=== PATIENT | female | born 1965 | race Caucasian/White ===

== ENCOUNTER 2018-07-03 15:48 | Inpatient (IN) | payer OTHER ==
[2018-07-04] MEDS ORDERED: ACETAMINOPHEN 325 MG TABLET (FP) PO PRN (16:37)
[2018-07-04] MEDS ORDERED: HYDROmorphone HCl 2 MG/ML VIAL IVPUSH PRN (16:37)
--- NOTE | 2018-07-04 16:53 | HP ---
Admitting History and Physical - Admission Chief Complaint: I have an ulcer History of Present Illness: Ms Hurtado is a pleasant 53 year old female who was transferred from [facility] to be seen by her original gastric bypass surgery Dr Khoury for evaluation of ulceration at site of anastamosis. Patient says she had surgery 12 years ago and has been doing well. However recently she presented to [facility] and was found to have an SBO which required emergent surgery for SHAISTA. She was discharged from the hospital, however she was not feeling well. She noted that she was having severe abdominal pain. She says it was mainly epigastric but also she felt it in her LLQ. She presented to [facility] and was found to have colitis and was treated with a full course of cipro and flagyl. She was seen by multiple specialties at [facility] including trauma, orthopedics, rheumatology , pain management, and GI. She underwent EGD there and was found to have a 2.5cm clean based ulceration at the gastrojejunal anastomosis. Case was d/w Dr Khoury who accepted the patient for transfer for possible surgery. Currently she says she is still having abdominal pain as stated above. She denies fevers, chills, lightheadedness, dizziness, chest pain or pressure, shortness of breath , nausea, vomiting, diarrhea, conversation, difficulty or pain on urination, or swelling. She says she might have a yeast infection secondary to recently being on antibiotics. History Source: Patient, Medical Record Limitations to Obtaining History: No Limitations - Past Medical History Cardiovascular: Yes: CAD, HTN, Hyperlipdemia Rheumatology: Yes: Rheumatoid Arthritis - Past Surgical History Past Surgical History: Yes: CABG, Joint Replacement (R knee) Additional Past Surgical History: gastric bypass - Smoking History Smoking history: Former smoker Have you smoked in the past 12 months: No - Alcohol/Substance Use Hx Alcohol Use: No History of Substance Use: reports: None - Social History Usual Living Arrangement: Yes: Alone ADL: Independent History of Recent Travel: No Family Disease History - Family Disease History Family Disease History: Diabetes: Mother, Brother Review of Systems Findings/Remarks: full review of systems obtained, as per HPI and otherwise negative Physical Examination Constitutional: Yes: Well Nourished, No Distress, Calm Eyes: Yes: Conjunctiva Clear, EOM Intact, PERRL HENT: Yes: Atraumatic, Normocephalic Cardiovascular: Yes: Regular Rate and Rhythm. No: Gallop, Murmur, Rub Respiratory: Yes: Regular, CTA Bilaterally. No: Rales, Rhonchi, Wheezes Gastrointestinal: Yes: Normal Bowel Sounds, Soft, Tenderness. No: Distention Extremities: Yes: WNL Edema: No Labs: pending Problem List - Problems (1) Gastric ulcer Assessment/Plan: -Dr Khoury accepted patient in transfer for evaluation for surgery -currently does not appear to be bleeding -place on protonix 40mg bid -continue carafate -clear liquid diet Code(s): K25.9 - GASTRIC ULCER, UNSP ACUTE OR CHRONIC, W/O HEMOR OR PERF (2) CAD (coronary artery disease) Assessment/Plan: -quiescent -no aspirin secondary to bleeding ulcer -continue metoprolol -continue statin -obtain ekg Code(s): I25.10 - ATHSCL HEART DISEASE OF [place] CORONARY ARTERY W/O ANG PCTRS (3) HTN (hypertension) Assessment/Plan: -continue metoprolol and cozaar Code(s): I10 - ESSENTIAL (PRIMARY) HYPERTENSION (4) Rheumatoid arthritis Assessment/Plan: -holding modulators secondary to recent infections and possible surgery -notes recommend gabapentin for pain control -will trial this Code(s): M06.9 - RHEUMATOID ARTHRITIS, UNSPECIFIED (5) Acute abdominal pain syndrome Assessment/Plan: -oxycodone for moderate pain -IV dilaudid for severe pain Code(s): R10.0 - ACUTE ABDOMEN (6) Depression Assessment/Plan: -continue lexapro Code(s): F32.9 - MAJOR DEPRESSIVE DISORDER, SINGLE EPISODE, UNSPECIFIED Assessment/Plan DVT PPx: SCDs, avoid anticoagulants PT consult
--- NOTE | 2018-07-04 17:52 | CONSULT ---
Consult - text type - Consultation Consultation Note: Bariatric Surgery This 53 yo woman transferred from [facility] with UGI bleeding and intractable epigastric pain secondary to an anastomotic ulcer. Pt is 15 years S/P Gastric Bypass and recently has suffered from UGI bleeding secondary to anastomotic ulcer. Gi service at [facility] states medical therapy is no longer an option, so patient is transferred for possible surgical therapy. Pt with history of CABG 2.5 years ago, and 3 weeks ago had surgery for intestinal obstruction. PMH-CAD, GERD, hypercholesterolemia, RA PSHx- CABG, Gastric Bypass, knee replacement P/E- Awake, alert, appears very thin, NAD Abd- non-distended; soft, mild epigastric discomfort on palpation I- Anastomotic Ulcer S/P Gastric Bypass P- GI consult (Dr Gomez contacted) Card Consult Daily Labs
[2018-07-04] MEDS: LACTATED RINGERS SOLUTION 1,000 ML IV SCH (18:38)
[2018-07-04] MEDS: oxyCODONE HCL 5 MG TABLET PO PRN (18:46)
[2018-07-04] MEDS: SUCRALFATE 1 GM/10 ML UNIT DOSE CUPS PO SCH ×2 (18:47→21:27)
[2018-07-04] MEDS: ALPRAZolam 0.25 MG TABLET PO PRN (18:47)
[2018-07-04] MEDS ORDERED: PT OWN MED DRAWER 7, Y5N ONE (18:57)
[2018-07-04 19:31] LABS: BASO % 0.8 % (0-2.0); HEMATOCRIT 34.1 % (32.4-45.2); HEMOGLOBIN 10.9 GM/dL (10.7-15.3); LYMPH % 28.5 % (8-40); MCH 29.9 pg (25.7-33.7); MEAN CELL VOLUME 93.4 fl (80-96); MEAN PLT VOLUME 9.6 fl (7.5-11.1); MONO % 14.6 % (3.8-10.2); NEUT % 55.1 % (42.8-82.8); PLATELET COUNT 324 K/MM3 (134-434); RBC 3.65 M/mm3 (3.60-5.2); RDW 20.4 % (11.6-15.6); WHITE BLOOD COUNT 3.3 K/mm3 (4.0-10.0)
[2018-07-04 19:49] LABS: INR 1.15 (0.83-1.09); PROTHROMBIN TIME (PATIENT) 13.6 SEC (9.7-13.0)
[2018-07-04 19:51] LABS: ACTIVATED PTT 35.9 SECONDS (25.2-36.5)
[2018-07-04] MEDS: PANTOPRAZOLE SODIUM 80 MG in SODIUM CHLORIDE 100 ML IVPB SCH (19:56)
[2018-07-04 19:59] LABS: ALBUMIN 2.9 g/dl (3.4-5.0); ALK PHOS 68 U/L (45-117); ANION GAP 9 MMOL/L (8-16); BILIRUBIN,TOTAL 0.3 mg/dL (0.2-1); BLOOD UREA NITROGEN 11 mg/dL (7-18); CALCIUM 8.4 mg/dL (8.5-10.1); CHLORIDE 103 mmol/L (98-107); CO2 26 mmol/L (21-32); CREATININE 0.7 mg/dL (0.55-1.3); GLUCOSE,RANDOM 126 mg/dL (74-106); MAGNESIUM 2.3 mg/dL (1.8-2.4); PHOSPHOROUS 3.9 mg/dL (2.5-4.9); POTASSIUM 4.2 mmol/L (3.5-5.1); SGOT/AST 15 U/L (15-37); SGPT/ALT 18 U/L (13-61); SODIUM 139 mmol/L (136-145); TOT PROT 6.9 g/dl (6.4-8.2)
[2018-07-04] MEDS: GABAPENTIN 250 MG/5 ML ORAL SOLUTION, 470 ML BOTTLE PO SCH (21:27)
[2018-07-04] MEDS: ATORVASTATIN CA 40 MG TABLET (FP) PO SCH (21:28)
[2018-07-04] MEDS: DOCUSATE SODIUM 100 MG CAPSULE (FP) PO SCH (21:28)
[2018-07-04] MEDS: ZOLPIDEM TARTRATE 5 MG TABLET PO PRN (21:30)
[2018-07-04] MEDS: HYDROmorphone HCl 2 MG/ML VIAL IVPB PRN (21:54)
[2018-07-04] MEDS ORDERED: PANTOPRAZOLE 40 MG TABLET (FP) PO SCH (22:00)
[2018-07-05] MEDS: HYDROmorphone HCl 2 MG/ML VIAL IVPB PRN ×4 (02:56→18:55)
[2018-07-05] MEDS: PANTOPRAZOLE SODIUM 80 MG in SODIUM CHLORIDE 100 ML IVPB SCH ×3 (03:17→20:32)
[2018-07-05] MEDS: LACTATED RINGERS SOLUTION 1,000 ML IV SCH ×2 (05:25→16:24)
[2018-07-05] MEDS: oxyCODONE HCL 5 MG TABLET PO PRN ×4 (05:31→21:56)
[2018-07-05] MEDS: GABAPENTIN 250 MG/5 ML ORAL SOLUTION, 470 ML BOTTLE PO SCH ×3 (05:31→21:55)
[2018-07-05] MEDS: SUCRALFATE 1 GM/10 ML UNIT DOSE CUPS PO SCH ×4 (06:04→21:56)
[2018-07-05 07:53] LABS: BASO % 0.8 % (0-2.0); HEMATOCRIT 29.5 % (32.4-45.2); HEMOGLOBIN 9.3 GM/dL (10.7-15.3); LYMPH % 20.3 % (8-40); MCH 29.3 pg (25.7-33.7); MCHC 31.6 g/dl (32.0-36.0); MEAN PLT VOLUME 9.3 fl (7.5-11.1); NEUT % 62.9 % (42.8-82.8); PLATELET COUNT 260 K/MM3 (134-434); RBC 3.17 M/mm3 (3.60-5.2); RDW 20.2 % (11.6-15.6); WHITE BLOOD COUNT 3.4 K/mm3 (4.0-10.0)
[2018-07-05 08:23] LABS: ALBUMIN 2.5 g/dl (3.4-5.0); ALK PHOS 53 U/L (45-117); ANION GAP 10 MMOL/L (8-16); BILIRUBIN,TOTAL 0.4 mg/dL (0.2-1); BLOOD UREA NITROGEN 8 mg/dL (7-18); CALCIUM 7.9 mg/dL (8.5-10.1); CHLORIDE 104 mmol/L (98-107); CO2 27 mmol/L (21-32); CREATININE 0.6 mg/dL (0.55-1.3); GLUCOSE,RANDOM 77 mg/dL (74-106); PHOSPHOROUS 3.5 mg/dL (2.5-4.9); POTASSIUM 4.2 mmol/L (3.5-5.1); SGOT/AST 12 U/L (15-37); SGPT/ALT 14 U/L (13-61); SODIUM 141 mmol/L (136-145)
[2018-07-05] MEDS ORDERED: PT OWN MED DRAWER 7, Y5N ONE ×3 (09:03→20:56)
[2018-07-05] MEDS: METOPROLOL TARTRATE 25 MG TABLET (FP) PO SCH (09:12)
[2018-07-05] MEDS: ESCITALOPRAM OXALATE 20 MG TABLET (FP) PO SCH (09:12)
[2018-07-05] MEDS: DOCUSATE SODIUM 100 MG CAPSULE (FP) PO SCH ×2 (09:12→21:55)
[2018-07-05] MEDS: FOLIC ACID 1 MG TABLET (FP) PO SCH (09:12)
[2018-07-05] MEDS: CALCITRIOL 0.25 MCG CAPSULE (FP) PO SCH (09:12)
[2018-07-05] MEDS: POLYETHYLENE GLYCOL 3350 119 GM BTL PO SCH (09:16)
[2018-07-05] MEDS ORDERED: LOSARTAN POTASSIUM 25 MG TABLET PO SCH (10:00)
[2018-07-05] MEDS: ALPRAZolam 0.25 MG TABLET PO PRN (11:15)
[2018-07-05] MEDS: ACETAMINOPHEN 650 MG/20.3 ML ORAL SOLUTION (CUPS) PO PRN (13:09)
--- NOTE | 2018-07-05 13:41 | PN ---
Progress Note, Physician Chief Complaint: Ms Hurtado complains of pain in her hands and feet. Denies cp, sob, n/v. - Current Medication List Current Medications: Active Medications Acetaminophen (Tylenol Oral Solution -) 650 mg PO Q4H PRN PRN Reason: FEVER Last Admin: 07/05/18 13:09 Dose: 650 mg Alprazolam (Xanax -) 0.5 mg PO Q8H PRN PRN Reason: ANXIETY Last Admin: 07/05/18 11:15 Dose: 0.5 mg Atorvastatin Calcium (Lipitor -) 40 mg PO HS [facility] Last Admin: 07/04/18 21:28 Dose: 40 mg Calcitriol (Rocaltrol -) 0.25 mcg PO DAILY [facility] Last Admin: 07/05/18 09:12 Dose: 0.25 mcg Docusate Sodium (Colace -) 100 mg PO BID [facility] Last Admin: 07/05/18 09:12 Dose: 100 mg Escitalopram Oxalate (Lexapro -) 20 mg PO DAILY [facility] Last Admin: 07/05/18 09:12 Dose: 20 mg Folic Acid (Folic Acid -) 1 mg PO DAILY [facility] Last Admin: 07/05/18 09:12 Dose: 1 mg Gabapentin (Neurontin Oral Liquid -) 100 mg PO TID [facility] Last Admin: 07/05/18 13:05 Dose: 100 mg Hydromorphone HCl (Dilaudid Vial -) 0.5 mg IVPB Q4H PRN PRN Reason: PAIN LEVEL 7 - 10 Last Admin: 07/05/18 13:04 Dose: 0.5 mg Lactated Ringer's (Lactated Ringers Solution) 1,000 mls @ 75 mls/hr IV ASDIR [facility] Last Admin: 07/05/18 05:25 Dose: 75 mls/hr Pantoprazole Sodium 80 mg/ (Sodium Chloride) 100 mls @ 10 mls/hr IVPB Q10H [facility] Last Admin: 07/05/18 03:17 Dose: 10 mls/hr Losartan Potassium (Cozaar -) 25 mg PO DAILY [facility] Last Admin: 07/05/18 09:12 Dose: 25 mg Metoprolol Tartrate (Lopressor -) 25 mg PO DAILY [facility] Last Admin: 07/05/18 09:12 Dose: 25 mg Oxycodone HCl (Roxicodone -) 10 mg PO Q4H PRN PRN Reason: PAIN LEVEL 4 - 6 Polyethylene Glycol (Miralax (For Daily Use) -) 17 gm PO DAILY [facility] Last Admin: 07/05/18 09:16 Dose: 17 gm Sucralfate (Carafate Oral Suspension -) 1 gm PO ACHS [facility] Last Admin: 07/05/18 11:36 Dose: 1 gm Zolpidem Tartrate (Ambien -) 10 mg PO HS PRN PRN Reason: INSOMNIA Last Admin: 07/04/18 21:30 Dose: 10 mg - Objective Vital Signs: Vital Signs Temperature 36.8 C 07/05/18 06:00 Pulse Rate 77 07/05/18 06:00 Respiratory Rate 18 07/05/18 06:00 Blood Pressure 113/72 07/05/18 06:00 O2 Sat by Pulse Oximetry (%) 98 07/05/18 09:00 Constitutional: Yes: Well Nourished, No Distress, Calm Cardiovascular: Yes: Regular Rate and Rhythm. No: Gallop, Murmur, Rub Respiratory: Yes: Regular, CTA Bilaterally. No: Rales, Rhonchi, Wheezes Gastrointestinal: Yes: Normal Bowel Sounds, Soft. No: Distention, Tenderness Extremities: Yes: WNL Edema: No Labs: CBC, BMP 07/05/18 06:30 07/05/18 06:30 INR, PTT INR 1.15 (0.83-1.09) H 07/04/18 18:34 Problem List - Problems (1) Gastric ulcer Code(s): K25.9 - GASTRIC ULCER, UNSP ACUTE OR CHRONIC, W/O HEMOR OR PERF (2) CAD (coronary artery disease) Code(s): I25.10 - ATHSCL HEART DISEASE OF [place] CORONARY ARTERY W/O ANG PCTRS (3) HTN (hypertension) Code(s): I10 - ESSENTIAL (PRIMARY) HYPERTENSION (4) Rheumatoid arthritis Code(s): M06.9 - RHEUMATOID ARTHRITIS, UNSPECIFIED (5) Acute abdominal pain syndrome Code(s): R10.0 - ACUTE ABDOMEN (6) Depression Code(s): F32.9 - MAJOR DEPRESSIVE DISORDER, SINGLE EPISODE, UNSPECIFIED Assessment/Plan (1) Gastric ulcer Assessment/Plan: -case d/w Dr Khoury -GI consulted, possible EGD on Saturday -evaluation for surgical intervention after this -on protonix gtt -clear liquid diet Code(s): K25.9 - GASTRIC ULCER, UNSP ACUTE OR CHRONIC, W/O HEMOR OR PERF (2) CAD (coronary artery disease) Assessment/Plan: -quiescent -no aspirin secondary to bleeding ulcer -continue metoprolol -continue statin -cardiology consult for clearance Code(s): I25.10 - ATHSCL HEART DISEASE OF [place] CORONARY ARTERY W/O ANG PCTRS (3) HTN (hypertension) Assessment/Plan: -continue metoprolol and cozaar Code(s): I10 - ESSENTIAL (PRIMARY) HYPERTENSION (4) Rheumatoid arthritis Assessment/Plan: -holding modulators secondary to recent infections and possible surgery -continue gabapentin -rheumatology consult per patient request Code(s): M06.9 - RHEUMATOID ARTHRITIS, UNSPECIFIED (5) Acute abdominal pain syndrome Assessment/Plan: -patient asking for more pain medications -will change oxycodone to 10mg q4h prn as that is what she was on at [facility] -however pain management recommended dilaudid 0.5mg IV q4h prn instead of q3h, placed on that -patient is asking for it to be changed to q3h prn and for it to be IVP, not piggybacked -explained to patient at this time will continue dilaudid at current order -pain management consult per patient request Code(s): R10.0 - ACUTE ABDOMEN (6) Depression Assessment/Plan: -continue lexapro Code(s): F32.9 - MAJOR DEPRESSIVE DISORDER, SINGLE EPISODE, UNSPECIFIED
[2018-07-05 13:55] LABS: URINE APPEARANCE CLEAR; URINE BILIRUBIN NEGATIVE (<2.0 mg/dL); URINE COLOR STRAW; URINE GLUCOSE (UA) NEGATIVE (NEGATIVE); URINE KETONE NEGATIVE (NEGATIVE); URINE LEUK ESTERASE TRACE (NEGATIVE); URINE NITRITE NEGATIVE (NEGATIVE); URINE PROTEIN NEGATIVE (NEGATIVE); URINE UROBILINOGEN NEGATIVE mg/dL (0.2-1.0)
--- NOTE | 2018-07-05 17:40 | PN ---
Progress Note (short form) - Note Progress Note: Bariatric Surgery Pt unchanged from previously Tolerating PO liquids No N/V No melena noted Last BP-77/49 (was WNL prior to that reading-will re-check) Pt ambulating with no difficulties P/E- Abd- non-distended; soft, mild epigastric tenderness on palpation No rebound tenderness No guarding WBC-3.4 H/H-9.3/29.5 (slight decrease from 10.9/34.1) P- Cont PO liquids Cardiology to see Possible endoscopy with GI on Saturday
--- NOTE | 2018-07-05 19:06 | CONSULT ---
Consult - text type - Consultation Consultation Note: Cardiology (Dr. Bailey for Dr. Stuart) Patient seen and examined Reason for consult: Preoperative cardiac evaluation 53yo female with HTN Transferred with UGI bleeding and intractable epigastric pain secondary to an anastomotic ulcer. Prior Gastric Bypass 15 years ago and recently has suffered from UGI bleeding ( Hgb 10.9) secondary to anastomotic ulcer. GI service at [facility] states medical therapy is no longer an option, so patient is transferred for possible surgical therapy Known CAD s/p 3v CAD in 2014 Follow[address] closely by Dr. Duke Mercer Recently underwent CV testing including stress testing 6 months ago and by her report was normal Now admitted with GI bleeding and will need EGD on Saturday Her functional capacity is >4 mets without cardiovascular symptoms She denies any chest pain or dyspnea She does have prior coronary stents (but done after her CABG revascularization) and with "7 MIs" all predating her CABG Allergies/Meds/Soc Hx and Fam Hx reviewed PE:BP 70-100/80s P 53 (on beta shyanne) No distress, comfortable JVP normal Regular rate, no murmurs Sternotomy scar visible Lungs are clear bilatearlly Abd is tender in epigastric area No LE edema Labs: Hgb 10.9, BUN/Cr 11/0.7 EC07/05/2018 at 09:52 NSR at 73/min with T-wave inversions in leads V4-V6 and II, II and AvF (unknown baseline) IMP: -Given her cardiac history and abnormal ECG (unknown baseline) I recommend reaching out to her primary music supervisor early Saturday AM (Dr. Duke Mercer ) to obtain report of her recent stress test and a copy of her recent ECG to determine if the current changes are baseline. Her BP is low, likely due to liquid diet, would d/c losartan in this setting Will follow along
--- NOTE | 2018-07-05 19:25 | CONSULT ---
Consult Consult Specialty:: Rheumatology - History of Present Illness History of Present Illness: 53 year old female with PMH of HTN, Hyperlipidemia, coronary artery disease and s/p CABG in 2016, shelter Hx of rheumatoid arthritis, Hx of gastric obstruction 3 weeks ago treated with endoscopic surgery, s/p gastric bypass, admitted with an anastomotic ulcer not responding to conservative treatment. HPI. The patient was admitted 3 weeks ago to [facility] with flu complicated with intestinal obstruction. She had endoscopic surgery, however she continued having severe abdominal pain, diagnosed with anastomotic ulcer not responding to medical treatment, transferred to [facility] for probable surgical management. RA. 30 year history of rheumatoid arthritis, She has been treated in the past with Humira, Enbrel, Remicade, Orencia and at the present time she is on Methotrexate 25 mg /w IM (apparently started only 4 years ago) and Xeljanz 11 mg (started 1 year ago), apparently with good response and discontinued 3 weeks ago due to the GI problems. The patient had in the past right total knee replacement, fusion of both wrists , arthroplasty (Ordonez) of MCPs in the right hand, cervical and lumbar spine fusion and apparently rheumatoid nodules removal from both elbows. At the present time the patient has severe pain in most peripheral joints and significant limitation of activities of daily living, she can hardly stand-up from bed. - History Source History Provided By: Patient, Medical Record - Past Medical History Cardio/Vascular: Yes: CAD, HTN, Hyperlipdemia ...: No Rheumatology: Yes: Rheumatoid Arthritis - Past Surgical History Past Surgical History: Yes: CABG, Joint Replacement (R knee) - Alcohol/Substance Use Hx Alcohol Use: No History of Substance Use: reports: None - Smoking History Smoking history: Former smoker Have you smoked in the past 12 months: No If you are a former smoker, when did you quit?: 10 years ago - Social History ADL: Independent History of Recent Travel: No Home Medications - Allergies Allergies/Adverse Reactions: Allergies Allergy/AdvReac Type Severity Reaction Status Date / Time No Known Allergies Allergy Verified 07/04/18 17:57 Family Disease History - Family Disease History Family Disease History: Diabetes: Mother, Brother Review of Systems - Review of Systems Constitutional: reports: Malaise Eyes: reports: No Symptoms HENT: reports: No Symptoms Neck: reports: No Symptoms Cardiovascular: reports: No Symptoms Respiratory: reports: No Symptoms Gastrointestinal: reports: Other (See HPI) Musculoskeletal: reports: Other (See HPI) Integumentary: reports: No Symptoms Neurological: reports: No Symptoms Physical Exam Vital Signs: Vital Signs Temperature 98.4 F 07/05/18 17:36 Pulse Rate 53 L 07/05/18 17:36 Respiratory Rate 18 07/05/18 17:36 Blood Pressure 101/59 L 07/05/18 17:36 O2 Sat by Pulse Oximetry (%) 98 07/05/18 09:00 Constitutional: Yes: Severe Distress Eyes: Yes: WNL HENT: Yes: WNL Neck: Yes: WNL Cardiovascular: Yes: WNL Respiratory: Yes: WNL Gastrointestinal: Yes: Soft, Tenderness Musculoskeletal: Yes: Other (Swelloing of both wlbows, both wrists, MCPs in the left hand, PIPs in both hands. Mild tenderness in the left ankle.) Labs: CBC, BMP 07/05/18 06:30 07/05/18 06:30 Laboratory Tests 07/05/18 07/05/18 06:30 12:50 Calcium 7.9 L Phosphorus 3.5 Magnesium 2.0 Total Bilirubin 0.4 AST 12 L ALT 14 Alkaline Phosphatase 53 Total Protein 6.0 L Albumin 2.5 L Urine Color Straw Urine Appearance Clear Urine pH 8.0 Ur Specific [place] 1.005 L Urine Protein Negative Urine Glucose (UA) Negative Urine Ketones Negative Urine Blood Negative Urine Nitrite Negative Urine Bilirubin Negative Urine Urobilinogen Negative Ur Leukocyte Esterase Trace Problem List - Problems (1) Rheumatoid arthritis Assessment/Plan: Rheumatoid arthritis, disease very active. The patient will probably have an endoscopy on Saturday and surgery is been contemplated. ]I suggest to continue Methotrexate 25 mg IM, start Prednisone 10 mg/d for joint pain management and continue to hold Xeljanz until the GI problem is resolved. I am waiting to discuss the case with Dr. Khoury to start the medications. Code(s): M06.9 - RHEUMATOID ARTHRITIS, UNSPECIFIED
[2018-07-05] MEDS: ZOLPIDEM TARTRATE 5 MG TABLET PO PRN (21:55)
[2018-07-05] MEDS: ATORVASTATIN CA 40 MG TABLET (FP) PO SCH (21:56)
[2018-07-06] MEDS: HYDROmorphone HCl 2 MG/ML VIAL IVPB PRN ×4 (01:17→21:43)
[2018-07-06] MEDS ORDERED: PT OWN MED DRAWER 7, Y5N ONE ×3 (01:27→22:22)
[2018-07-06] MEDS: PANTOPRAZOLE SODIUM 80 MG in SODIUM CHLORIDE 100 ML IVPB SCH ×2 (03:54→09:59)
[2018-07-06] MEDS: oxyCODONE HCL 5 MG TABLET PO PRN ×3 (06:02→18:52)
[2018-07-06] MEDS: GABAPENTIN 250 MG/5 ML ORAL SOLUTION, 470 ML BOTTLE PO SCH ×3 (06:05→21:42)
[2018-07-06] MEDS: SUCRALFATE 1 GM/10 ML UNIT DOSE CUPS PO SCH ×4 (06:05→21:46)
[2018-07-06 07:46] LABS: BASO % 0.6 % (0-2.0); EOS % 1.5 % (0-4.5); HEMATOCRIT 29.2 % (32.4-45.2); HEMOGLOBIN 9.3 GM/dL (10.7-15.3); LYMPH % 29.1 % (8-40); MCH 29.6 pg (25.7-33.7); MCHC 31.8 g/dl (32.0-36.0); MEAN PLT VOLUME 8.7 fl (7.5-11.1); MONO % 17.5 % (3.8-10.2); NEUT % 51.3 % (42.8-82.8); PLATELET COUNT 232 K/MM3 (134-434); RBC 3.14 M/mm3 (3.60-5.2); WHITE BLOOD COUNT 2.4 K/mm3 (4.0-10.0)
[2018-07-06 08:31] LABS: ANION GAP 4 MMOL/L (8-16); BLOOD UREA NITROGEN 5 mg/dL (7-18); CALCIUM 8.4 mg/dL (8.5-10.1); CHLORIDE 105 mmol/L (98-107); CO2 30 mmol/L (21-32); CREATININE 0.5 mg/dL (0.55-1.3); GLUCOSE,RANDOM 77 mg/dL (74-106); PHOSPHOROUS 4.2 mg/dL (2.5-4.9); POTASSIUM 3.9 mmol/L (3.5-5.1); SODIUM 138 mmol/L (136-145)
[2018-07-06] MEDS: ALPRAZolam 0.25 MG TABLET PO PRN (08:52)
[2018-07-06] MEDS: POLYETHYLENE GLYCOL 3350 119 GM BTL PO SCH (09:59)
[2018-07-06] MEDS: ESCITALOPRAM OXALATE 20 MG TABLET (FP) PO SCH (09:59)
[2018-07-06] MEDS: DOCUSATE SODIUM 100 MG CAPSULE (FP) PO SCH ×2 (09:59→21:41)
[2018-07-06] MEDS: METOPROLOL TARTRATE 25 MG TABLET (FP) PO SCH (09:59)
[2018-07-06] MEDS: FOLIC ACID 1 MG TABLET (FP) PO SCH (09:59)
[2018-07-06] MEDS: CALCITRIOL 0.25 MCG CAPSULE (FP) PO SCH (09:59)
--- NOTE | 2018-07-06 12:18 | PN ---
Progress Note, Physician Chief Complaint: Ms Hurtado complains of rheumatoid arthritis pain. No cp, sob, n/v. - Current Medication List Current Medications: Active Medications Acetaminophen (Tylenol Oral Solution -) 650 mg PO Q4H PRN PRN Reason: FEVER Last Admin: 07/05/18 13:09 Dose: 650 mg Alprazolam (Xanax -) 0.5 mg PO Q8H PRN PRN Reason: ANXIETY Last Admin: 07/06/18 08:52 Dose: 0.5 mg Atorvastatin Calcium (Lipitor -) 40 mg PO HS [facility] Last Admin: 07/05/18 21:56 Dose: 40 mg Calcitriol (Rocaltrol -) 0.25 mcg PO DAILY [facility] Last Admin: 07/06/18 09:59 Dose: 0.25 mcg Docusate Sodium (Colace -) 100 mg PO BID [facility] Last Admin: 07/06/18 09:59 Dose: 100 mg Escitalopram Oxalate (Lexapro -) 20 mg PO DAILY [facility] Last Admin: 07/06/18 09:59 Dose: 20 mg Folic Acid (Folic Acid -) 1 mg PO DAILY [facility] Last Admin: 07/06/18 09:59 Dose: 1 mg Gabapentin (Neurontin Oral Liquid -) 100 mg PO TID [facility] Last Admin: 07/06/18 06:05 Dose: 100 mg Hydromorphone HCl (Dilaudid Vial -) 0.5 mg IVPB Q4H PRN PRN Reason: PAIN LEVEL 7 - 10 Last Admin: 07/06/18 08:51 Dose: 0.5 mg Lactated Ringer's (Lactated Ringers Solution) 1,000 mls @ 75 mls/hr IV ASDIR [facility] Last Admin: 07/05/18 16:24 Dose: 75 mls/hr Pantoprazole Sodium 80 mg/ (Sodium Chloride) 100 mls @ 10 mls/hr IVPB Q10H [facility] Last Admin: 07/06/18 09:59 Dose: 10 mls/hr Metoprolol Tartrate (Lopressor -) 25 mg PO DAILY [facility] Last Admin: 07/06/18 09:59 Dose: Not Given Oxycodone HCl (Roxicodone -) 10 mg PO Q4H PRN PRN Reason: PAIN LEVEL 4 - 6 Last Admin: 07/06/18 12:01 Dose: 10 mg Polyethylene Glycol (Miralax (For Daily Use) -) 17 gm PO DAILY [facility] Last Admin: 07/06/18 09:59 Dose: 17 gm Sucralfate (Carafate Oral Suspension -) 1 gm PO ACHS [facility] Last Admin: 07/06/18 12:01 Dose: 1 gm Zolpidem Tartrate (Ambien -) 10 mg PO HS PRN PRN Reason: INSOMNIA Last Admin: 07/05/18 21:55 Dose: 10 mg - Objective Vital Signs: Vital Signs Temperature 37.2 C 07/06/18 09:58 Pulse Rate 78 07/06/18 09:58 Respiratory Rate 18 07/06/18 09:58 Blood Pressure 99/61 07/06/18 09:58 O2 Sat by Pulse Oximetry (%) 96 07/06/18 09:00 Constitutional: Yes: Well Nourished, No Distress, Calm Cardiovascular: Yes: Regular Rate and Rhythm. No: Gallop, Murmur, Rub Respiratory: Yes: Regular, CTA Bilaterally. No: Rales, Rhonchi, Wheezes Gastrointestinal: Yes: Normal Bowel Sounds, Soft. No: Distention, Tenderness Extremities: Yes: WNL Edema: No Labs: CBC, BMP 07/06/18 06:30 07/06/18 06:30 INR, PTT INR 1.15 (0.83-1.09) H 07/04/18 18:34 Problem List - Problems (1) Gastric ulcer Code(s): K25.9 - GASTRIC ULCER, UNSP ACUTE OR CHRONIC, W/O HEMOR OR PERF (2) CAD (coronary artery disease) Code(s): I25.10 - ATHSCL HEART DISEASE OF [place] CORONARY ARTERY W/O ANG PCTRS (3) HTN (hypertension) Code(s): I10 - ESSENTIAL (PRIMARY) HYPERTENSION (4) Rheumatoid arthritis Code(s): M06.9 - RHEUMATOID ARTHRITIS, UNSPECIFIED (5) Acute abdominal pain syndrome Code(s): R10.0 - ACUTE ABDOMEN (6) Depression Code(s): F32.9 - MAJOR DEPRESSIVE DISORDER, SINGLE EPISODE, UNSPECIFIED Assessment/Plan (1) Gastric ulcer Assessment/Plan: -Dr Khoury and Dr Gomez following -planning for EGD tomorrow -will make npo tonight -on protonix gtt -clear liquid diet currently Code(s): K25.9 - GASTRIC ULCER, UNSP ACUTE OR CHRONIC, W/O HEMOR OR PERF (2) CAD (coronary artery disease) Assessment/Plan: -quiescent -no aspirin secondary to bleeding ulcer -continue metoprolol -continue statin -cardiology note reviewed, obtain outpatient records Code(s): I25.10 - ATHSCL HEART DISEASE OF [place] CORONARY ARTERY W/O ANG PCTRS (3) HTN (hypertension) Assessment/Plan: -continue metoprolol -cozaar discontinued secondary to hypotension Code(s): I10 - ESSENTIAL (PRIMARY) HYPERTENSION (4) Rheumatoid arthritis Assessment/Plan: -continue gabapentin -appreciate rheumatology consult -start methotrexate and prednisone if approved by Dr Khoury Code(s): M06.9 - RHEUMATOID ARTHRITIS, UNSPECIFIED (5) Acute abdominal pain syndrome Assessment/Plan: -pain management consult placed -continue current regimen Code(s): R10.0 - ACUTE ABDOMEN (6) Depression Assessment/Plan: -continue lexapro Code(s): F32.9 - MAJOR DEPRESSIVE DISORDER, SINGLE EPISODE, UNSPECIFIED
--- NOTE | 2018-07-06 12:49 | EKG ---
Test Reason : Blood Pressure : / mmHG Vent. Rate : 073 BPM Atrial Rate : 073 BPM P-R Int : 098 ms QRS Dur : 092 ms QT Int : 410 ms P-R-T Axes : 029 035 -41 degrees QTc Int : 451 ms SINUS RHYTHM WITH SHORT [place] INFERIOR INFARCT , AGE UNDETERMINED ABNORMAL ECG NO PREVIOUS ECGS AVAILABLE Confirmed by Samuel Chirinos ([id number]) on 07/06/2018 12:48:59 PM Referred By: Bobby MATAMOROS Confirmed By:Samuel Chirinos
--- NOTE | 2018-07-06 16:29 | PN ---
Progress Note (short form) - Note Progress Note: Bariatric Surgery: Cardiology, Rheumatology notes appreciated Pt unchanged VSS Pt states felt epigastric pain after eating chicken soup today No N/V No BM today P/E-Abd- soft, mild epigastric pain on palpation WBC-2.4 H/H-9.3/29.2(stable) P- NPO tonight Would not start prednisone or Methotrexate seconday to risk of bleeding and/ or perforation with ulcer
[2018-07-06] MEDS: LACTATED RINGERS SOLUTION 1,000 ML IV SCH (17:22)
[2018-07-06] MEDS: ZOLPIDEM TARTRATE 5 MG TABLET PO PRN (21:41)
[2018-07-06] MEDS: ATORVASTATIN CA 40 MG TABLET (FP) PO SCH (21:41)
[2018-07-07] MEDS: oxyCODONE HCL 5 MG TABLET PO PRN ×3 (00:26→10:42)
[2018-07-07] MEDS: HYDROmorphone HCl 2 MG/ML VIAL IVPB PRN ×3 (03:31→21:19)
[2018-07-07] MEDS: PANTOPRAZOLE SODIUM 80 MG in SODIUM CHLORIDE 100 ML IVPB SCH ×3 (06:28→15:29)
[2018-07-07] MEDS: GABAPENTIN 250 MG/5 ML ORAL SOLUTION, 470 ML BOTTLE PO SCH ×3 (06:29→21:08)
[2018-07-07] MEDS: SUCRALFATE 1 GM/10 ML UNIT DOSE CUPS PO SCH ×4 (06:37→21:08)
[2018-07-07 07:46] LABS: BASO % 0.8 % (0-2.0); EOS % 1.1 % (0-4.5); HEMATOCRIT 31.1 % (32.4-45.2); HEMOGLOBIN 9.6 GM/dL (10.7-15.3); LYMPH % 26.4 % (8-40); MCH 28.7 pg (25.7-33.7); MCHC 30.9 g/dl (32.0-36.0); MEAN PLT VOLUME 8.8 fl (7.5-11.1); MONO % 22.7 % (3.8-10.2); PLATELET COUNT 245 K/MM3 (134-434); RBC 3.35 M/mm3 (3.60-5.2); RDW 19.7 % (11.6-15.6); WHITE BLOOD COUNT 2.7 K/mm3 (4.0-10.0)
[2018-07-07 09:16] LABS: ANION GAP 8 MMOL/L (8-16); BLOOD UREA NITROGEN 4 mg/dL (7-18); CALCIUM 8.6 mg/dL (8.5-10.1); CHLORIDE 104 mmol/L (98-107); CO2 29 mmol/L (21-32); CREATININE 0.5 mg/dL (0.55-1.3); GLUCOSE,RANDOM 70 mg/dL (74-106); MAGNESIUM 2.1 mg/dL (1.8-2.4); PHOSPHOROUS 4.9 mg/dL (2.5-4.9); POTASSIUM 4.1 mmol/L (3.5-5.1); SODIUM 141 mmol/L (136-145)
[2018-07-07] MEDS: POLYETHYLENE GLYCOL 3350 119 GM BTL PO SCH (09:25)
[2018-07-07] MEDS: DOCUSATE SODIUM 100 MG CAPSULE (FP) PO SCH ×2 (09:25→21:08)
[2018-07-07] MEDS: ESCITALOPRAM OXALATE 20 MG TABLET (FP) PO SCH ×2 (09:25→15:23)
[2018-07-07] MEDS: CALCITRIOL 0.25 MCG CAPSULE (FP) PO SCH ×2 (09:25→15:23)
[2018-07-07] MEDS: FOLIC ACID 1 MG TABLET (FP) PO SCH ×2 (09:25→15:23)
[2018-07-07] MEDS: METOPROLOL TARTRATE 25 MG TABLET (FP) PO SCH (09:30)
--- NOTE | 2018-07-07 09:32 | CON.GI ---
Consult Consult Specialty:: GI Referred by:: Anup Khoury Reason for Consultation:: Abdominal pain, h/o anastamotic ulcer - History of Present Illness Chief Complaint: Abdominal pain History of Present Illness: 53F, recent hospital @ [facility] and underwent laparoscopy secondary to SBO. Was sent home, noted rectal bleeding / melena, brought to [facility]. Prolonged hospitalization there where marginal ulcer noted. Patient described being treated with nexium and carafate. Transferred to [facility] for possible revision of stephen-en -y gastric bypass. Asked to evaluate ulcer. She complains of left upper abdominal pain and describes it as constant in nature. No vomiting. No diarrhea or rectal bleeding noted. No vomiting. She states that her test clerk is Dr. Welsh and last underwent colonoscopy by her three years ago. There is no family history of colorecctal cancer or other GI malignancy. - History Source History Provided By: Patient, Medical Record - Past Medical History Cardio/Vascular: Yes: CAD, HTN, Hyperlipdemia ...: No Rheumatology: Yes: Rheumatoid Arthritis - Past Surgical History Past Surgical History: Yes: Bariatric Surgery (Gastric bypass: Stephen-en-y), CABG , Hysterectomy (RONEL ), Joint Replacement (R knee), Oopherectomy Additional Surgical History: spinal surgery - Alcohol/Substance Use Hx Alcohol Use: No History of Substance Use: reports: None - Smoking History Smoking history: Former smoker Have you smoked in the past 12 months: No If you are a former smoker, when did you quit?: 10 years ago - Social History Usual Living Arrangement: With Spouse ADL: Independent 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 Place of : [facility] History of Recent Travel: No Home Medications - Allergies Allergies/Adverse Reactions: Allergies Allergy/AdvReac Type Severity Reaction Status Date / Time No Known Allergies Allergy Verified 07/04/18 17:57 Family Disease History - Family Disease History Family Disease History: Diabetes: Mother (: 81: CAD), Brother (4, healthy), Other: Father (: unclear cause), Brother, Sister (1, healthy), Son (2, healthy), Daughter (2, healthy) Other Family History: No family history of colorectal cancer or other GI malignancy Review of Systems - Review of Systems Constitutional: denies: Fever, Unintentional Wgt. Loss Gastrointestinal: reports: Abdominal Pain, Diarrhea, Melena. denies: Constipation, Rectal Bleeding, Vomiting, Vomiting Blood Physical Exam-GI Vital Signs: Vital Signs Temperature 99.4 F 07/07/18 06:00 Pulse Rate 79 07/07/18 06:00 Respiratory Rate 20 07/07/18 06:00 Blood Pressure 112/69 07/07/18 06:00 O2 Sat by Pulse Oximetry (%) 96 07/06/18 09:00 Constitutional: Yes: Calm Eyes: No: Sclera Icterus Cardiovascular: Yes: Regular Rate and Rhythm. No: Murmur Respiratory: Yes: CTA Bilaterally Gastrointestinal Inspection: No: Distention ...Auscultate: Yes: Normoactive Bowel Sounds ...Palpate: Yes: Tenderness (Mild TTP upper abdomen / LUQ) ...Percussion: No: Tympanitic Edema: No (No LE edema) Neurological: Yes: Alert Labs: CBC, BMP 07/07/18 06:30 07/07/18 06:30 INR, PTT INR 1.15 (0.83-1.09) H 07/04/18 18:34 Hepatic Panel Total Bilirubin 0.4 mg/dL (0.2-1) 07/05/18 06:30 AST 12 U/L (15-37) L 07/05/18 06:30 ALT 14 U/L (13-61) 07/05/18 06:30 Alkaline Phosphatase 53 U/L (45-117) 07/05/18 06:30 Albumin 2.5 g/dl (3.4-5.0) L 07/05/18 06:30 Problem List - Problems (1) Gastric ulcer Assessment/Plan: Anastamostic ulcer For reevaluation prior to surgery Discussed upper endoscopy: Discussed potential risks of the procedure like but not limited to bleeding, perforation requiring surgery to repair, infection, sedation medication effects all of which could be potentially life threatening. She has agreed to the procedure Code(s): K25.9 - GASTRIC ULCER, UNSP ACUTE OR CHRONIC, W/O HEMOR OR PERF
[2018-07-07] MEDS: LACTATED RINGERS SOLUTION 1,000 ML IV SCH ×2 (10:46→17:28)
--- NOTE | 2018-07-07 11:54 | PN ---
Progress Note (short form) - Note Progress Note: Bariatric Surgery: Pt unchanged; no further bleeding No N/V GI note appreciated Placed call to Dr Moe (office will fax recent EKG and Stress test) P- Upper endoscopy today Awaiting results of Cardiology testing
--- NOTE | 2018-07-07 13:07 | PN ---
Progress Note, Physician Chief Complaint: Ms Hurtado complains of pain in her hands. Denies cp, sob, n/v. - Current Medication List Current Medications: Active Medications Acetaminophen (Tylenol Oral Solution -) 650 mg PO Q4H PRN PRN Reason: FEVER Last Admin: 07/05/18 13:09 Dose: 650 mg Alprazolam (Xanax -) 0.5 mg PO Q8H PRN PRN Reason: ANXIETY Last Admin: 07/06/18 08:52 Dose: 0.5 mg Atorvastatin Calcium (Lipitor -) 40 mg PO HS [facility] Last Admin: 07/06/18 21:41 Dose: 40 mg Calcitriol (Rocaltrol -) 0.25 mcg PO DAILY [facility] Last Admin: 07/07/18 09:25 Dose: Not Given Docusate Sodium (Colace -) 100 mg PO BID [facility] Last Admin: 07/07/18 09:25 Dose: Not Given Escitalopram Oxalate (Lexapro -) 20 mg PO DAILY [facility] Last Admin: 07/07/18 09:25 Dose: Not Given Folic Acid (Folic Acid -) 1 mg PO DAILY [facility] Last Admin: 07/07/18 09:25 Dose: Not Given Gabapentin (Neurontin Oral Liquid -) 100 mg PO TID [facility] Last Admin: 07/07/18 06:29 Dose: 100 mg Hydromorphone HCl (Dilaudid Vial -) 0.5 mg IVPB Q4H PRN PRN Reason: PAIN LEVEL 7 - 10 Last Admin: 07/07/18 12:14 Dose: 0.5 mg Lactated Ringer's (Lactated Ringers Solution) 1,000 mls @ 75 mls/hr IV ASDIR [facility] Last Admin: 07/07/18 10:46 Dose: 75 mls/hr Pantoprazole Sodium 80 mg/ (Sodium Chloride) 100 mls @ 10 mls/hr IVPB Q10H [facility] Last Admin: 07/07/18 11:13 Dose: 10 mls/hr Metoprolol Tartrate (Lopressor -) 25 mg PO DAILY [facility] Last Admin: 07/07/18 09:30 Dose: 25 mg Oxycodone HCl (Roxicodone -) 10 mg PO Q4H PRN PRN Reason: PAIN LEVEL 4 - 6 Last Admin: 07/07/18 10:42 Dose: 10 mg Polyethylene Glycol (Miralax (For Daily Use) -) 17 gm PO DAILY [facility] Last Admin: 07/07/18 09:25 Dose: Not Given Sucralfate (Carafate Oral Suspension -) 1 gm PO ACHS [facility] Last Admin: 07/07/18 10:42 Dose: 1 gm Zolpidem Tartrate (Ambien -) 10 mg PO HS PRN PRN Reason: INSOMNIA Last Admin: 07/06/18 21:41 Dose: 10 mg - Objective Vital Signs: Vital Signs Temperature 36.6 C 07/07/18 10:00 Pulse Rate 84 07/07/18 10:00 Respiratory Rate 20 07/07/18 10:00 Blood Pressure 135/78 07/07/18 10:00 O2 Sat by Pulse Oximetry (%) 97 07/07/18 09:00 Constitutional: Yes: Well Nourished, No Distress, Calm Cardiovascular: Yes: Regular Rate and Rhythm. No: Gallop, Murmur, Rub Respiratory: Yes: Regular, CTA Bilaterally. No: Rales, Rhonchi, Wheezes Gastrointestinal: Yes: Normal Bowel Sounds, Soft. No: Distention, Tenderness Extremities: Yes: WNL Edema: No Labs: CBC, BMP 07/07/18 06:30 07/07/18 06:30 INR, PTT INR 1.15 (0.83-1.09) H 07/04/18 18:34 Problem List - Problems (1) Gastric ulcer Code(s): K25.9 - GASTRIC ULCER, UNSP ACUTE OR CHRONIC, W/O HEMOR OR PERF (2) CAD (coronary artery disease) Code(s): I25.10 - ATHSCL HEART DISEASE OF [place] CORONARY ARTERY W/O ANG PCTRS (3) HTN (hypertension) Code(s): I10 - ESSENTIAL (PRIMARY) HYPERTENSION (4) Rheumatoid arthritis Code(s): M06.9 - RHEUMATOID ARTHRITIS, UNSPECIFIED (5) Acute abdominal pain syndrome Code(s): R10.0 - ACUTE ABDOMEN (6) Depression Code(s): F32.9 - MAJOR DEPRESSIVE DISORDER, SINGLE EPISODE, UNSPECIFIED Assessment/Plan (1) Gastric ulcer Assessment/Plan: -Dr Khoury and Dr Gomez following -planning for EGD today -on protonix gtt -npo for EGD Code(s): K25.9 - GASTRIC ULCER, UNSP ACUTE OR CHRONIC, W/O HEMOR OR PERF (2) CAD (coronary artery disease) Assessment/Plan: -quiescent -no aspirin secondary to bleeding ulcer -continue metoprolol -continue statin -case d/w cardiology, will document clearance Code(s): I25.10 - ATHSCL HEART DISEASE OF [place] CORONARY ARTERY W/O ANG PCTRS (3) HTN (hypertension) Assessment/Plan: -continue metoprolol -cozaar discontinued secondary to hypotension Code(s): I10 - ESSENTIAL (PRIMARY) HYPERTENSION (4) Rheumatoid arthritis Assessment/Plan: -continue gabapentin -appreciate rheumatology consult -hold on methotrexate and prednisone per Dr Khoury's recommendations Code(s): M06.9 - RHEUMATOID ARTHRITIS, UNSPECIFIED (5) Acute abdominal pain syndrome Assessment/Plan: -pain management consult placed -continue current regimen Code(s): R10.0 - ACUTE ABDOMEN (6) Depression Assessment/Plan: -continue lexapro Code(s): F32.9 - MAJOR DEPRESSIVE DISORDER, SINGLE EPISODE, UNSPECIFIED
--- NOTE | 2018-07-07 14:36 | PN ---
Progress Note (short form) - Note Progress Note: procedure cancelled by anesthesia today. Awaiting formal cardiology clearance. Plan for EGD tomorrow Problem List - Problems (1) Gastric ulcer Code(s): K25.9 - GASTRIC ULCER, UNSP ACUTE OR CHRONIC, W/O HEMOR OR PERF
--- NOTE | 2018-07-07 14:58 | PN ---
Progress Note (short form) - Note Progress Note: s: no chest pain, palps, dizzy, lightheadedness, edema Current Medications Acetaminophen (Tylenol Oral Solution -) 650 mg PO Q4H PRN PRN Reason: FEVER Last Admin: 07/05/18 13:09 Dose: 650 mg Alprazolam (Xanax -) 0.5 mg PO Q8H PRN PRN Reason: ANXIETY Last Admin: 07/06/18 08:52 Dose: 0.5 mg Atorvastatin Calcium (Lipitor -) 40 mg PO HS [facility] Last Admin: 07/06/18 21:41 Dose: 40 mg Calcitriol (Rocaltrol -) 0.25 mcg PO DAILY [facility] Last Admin: 07/07/18 09:25 Dose: Not Given Docusate Sodium (Colace -) 100 mg PO BID [facility] Last Admin: 07/07/18 09:25 Dose: Not Given Escitalopram Oxalate (Lexapro -) 20 mg PO DAILY [facility] Last Admin: 07/07/18 09:25 Dose: Not Given Folic Acid (Folic Acid -) 1 mg PO DAILY [facility] Last Admin: 07/07/18 09:25 Dose: Not Given Gabapentin (Neurontin Oral Liquid -) 100 mg PO TID [facility] Last Admin: 07/07/18 06:29 Dose: 100 mg Hydromorphone HCl (Dilaudid Vial -) 0.5 mg IVPB Q4H PRN PRN Reason: PAIN LEVEL 7 - 10 Last Admin: 07/07/18 12:14 Dose: 0.5 mg Lactated Ringer's (Lactated Ringers Solution) 1,000 mls @ 75 mls/hr IV ASDIR [facility] Last Admin: 07/07/18 10:46 Dose: 75 mls/hr Pantoprazole Sodium 80 mg/ (Sodium Chloride) 100 mls @ 10 mls/hr IVPB Q10H [facility] Last Admin: 07/07/18 11:13 Dose: 10 mls/hr Metoprolol Tartrate (Lopressor -) 25 mg PO DAILY [facility] Last Admin: 07/07/18 09:30 Dose: 25 mg Oxycodone HCl (Roxicodone -) 10 mg PO Q4H PRN PRN Reason: PAIN LEVEL 4 - 6 Last Admin: 07/07/18 10:42 Dose: 10 mg Polyethylene Glycol (Miralax (For Daily Use) -) 17 gm PO DAILY [facility] Last Admin: 07/07/18 09:25 Dose: Not Given Sucralfate (Carafate Oral Suspension -) 1 gm PO ACHS [facility] Last Admin: 07/07/18 10:42 Dose: 1 gm Zolpidem Tartrate (Ambien -) 10 mg PO HS PRN PRN Reason: INSOMNIA Last Admin: 07/06/18 21:41 Dose: 10 mg Vital Signs Period Temp Pulse Resp BP Sys/Joseph Pulse Ox Last 24 Hr 97.8 F-99.4 F 67-84 18-20 112-135/69-78 97 No distress, comfortable JVP normal Regular rate, no murmurs Sternotomy scar visible Lungs CTAB Abd is mild TTP epigastric area No LE edema EC07/05/2018 at 09:52 NSR at 73/min with T-wave inversions in leads V4-V6 and II, II and AvF ECG 09/19/17 sinus, old inf infarct, TWI II, III, aVF, V4-V6, PVC mibi 05/2017 large scar involving inferior and inferolateral barbour. 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
[2018-07-07] MEDS ORDERED: PT OWN MED DRAWER 7, Y5N ONE (15:21)
[2018-07-07] MEDS: ALPRAZolam 0.25 MG TABLET PO PRN (15:23)
[2018-07-07] MEDS: ATORVASTATIN CA 40 MG TABLET (FP) PO SCH (21:08)
[2018-07-07] MEDS: ZOLPIDEM TARTRATE 5 MG TABLET PO PRN (21:19)
[2018-07-07] MEDS: ACETAMINOPHEN 650 MG/20.3 ML ORAL SOLUTION (CUPS) PO PRN (22:59)
[2018-07-08] MEDS: PANTOPRAZOLE SODIUM 80 MG in SODIUM CHLORIDE 100 ML IVPB SCH ×2 (02:09→03:47)
[2018-07-08] MEDS: LACTATED RINGERS SOLUTION 1,000 ML IV SCH ×2 (03:47→21:39)
[2018-07-08] MEDS: oxyCODONE HCL 5 MG TABLET PO PRN ×2 (06:04→12:58)
[2018-07-08] MEDS: GABAPENTIN 250 MG/5 ML ORAL SOLUTION, 470 ML BOTTLE PO SCH ×3 (06:04→21:38)
[2018-07-08] MEDS: SUCRALFATE 1 GM/10 ML UNIT DOSE CUPS PO SCH ×2 (06:04→21:38)
[2018-07-08 07:19] LABS: BASO % 1.1 % (0-2.0); EOS % 1.5 % (0-4.5); HEMATOCRIT 32.2 % (32.4-45.2); HEMOGLOBIN 10.1 GM/dL (10.7-15.3); LYMPH % 32.9 % (8-40); MCH 29.1 pg (25.7-33.7); MCHC 31.3 g/dl (32.0-36.0); MEAN CELL VOLUME 92.9 fl (80-96); MEAN PLT VOLUME 8.9 fl (7.5-11.1); MONO % 21.4 % (3.8-10.2); NEUT % 43.1 % (42.8-82.8); PLATELET COUNT 244 K/MM3 (134-434); RBC 3.46 M/mm3 (3.60-5.2); RDW 19.7 % (11.6-15.6); WHITE BLOOD COUNT 2.4 K/mm3 (4.0-10.0)
[2018-07-08 07:44] LABS: ALBUMIN 2.7 g/dl (3.4-5.0); ALK PHOS 55 U/L (45-117); ANION GAP 9 MMOL/L (8-16); BILIRUBIN,TOTAL 0.6 mg/dL (0.2-1); BLOOD UREA NITROGEN 5 mg/dL (7-18); CALCIUM 8.7 mg/dL (8.5-10.1); CHLORIDE 104 mmol/L (98-107); CO2 27 mmol/L (21-32); CREATININE 0.6 mg/dL (0.55-1.3); GLUCOSE,RANDOM 93 mg/dL (74-106); POTASSIUM 4.3 mmol/L (3.5-5.1); SGOT/AST 17 U/L (15-37); SGPT/ALT 16 U/L (13-61); SODIUM 140 mmol/L (136-145); TOT PROT 6.3 g/dl (6.4-8.2)
[2018-07-08] MEDS: METOPROLOL TARTRATE 25 MG TABLET (FP) PO SCH (09:28)
--- NOTE | 2018-07-08 10:51 | PROC ---
Procedure Note Procedure: Bariatric Surgery Pt unchanged 101.3 temp at 9 PM last night Afebrile since then Labs today WBC-2.4 H/H-10.1/32.2 P- EGD today Will check EGD results then plan course of action
--- NOTE | 2018-07-08 12:03 | PN ---
Progress Note (short form) - Note Progress Note: EGD report placed in procedural section of physical chart and to be scanned into [employer]. Patient with transient desaturation duiring procedures into mid 80's. refluxed bile was suctioned from oropharynx. O2 saturation improved with supplemental oxygen. Left on 2 L NC post procedure. Problem List - Problems (1) Gastric ulcer Code(s): K25.9 - GASTRIC ULCER, UNSP ACUTE OR CHRONIC, W/O HEMOR OR PERF
[2018-07-08] MEDS ORDERED: DEXTROSE 5%-WATER - 50 ML IVPB ONE (12:54)
[2018-07-08] MEDS ORDERED: cefTRIAXone SODIUM 1 GM VIAL ONE (12:54)
[2018-07-08 12:55] LABS: ANISOCYTOSIS 1+; MACROCYTOSIS 1+; OVALOCYTE 1+; PLATELET ESTIMATE NORMAL
[2018-07-08] MEDS: CALCITRIOL 0.25 MCG CAPSULE (FP) PO SCH (12:59)
[2018-07-08] MEDS: ESCITALOPRAM OXALATE 20 MG TABLET (FP) PO SCH (12:59)
[2018-07-08] MEDS: DOCUSATE SODIUM 100 MG CAPSULE (FP) PO SCH ×2 (12:59→21:38)
[2018-07-08] MEDS: FOLIC ACID 1 MG TABLET (FP) PO SCH (12:59)
[2018-07-08] MEDS: ALPRAZolam 0.25 MG TABLET PO PRN (12:59)
[2018-07-08] MEDS: CEFTRIAXONE 1 GM in DEXTROSE 5%-WATER - 50 ML IVPB SCH (13:00)
[2018-07-08] MEDS: POLYETHYLENE GLYCOL 3350 119 GM BTL PO SCH (14:40)
--- NOTE | 2018-07-08 15:18 | PN ---
Progress Note (short form) - Note Progress Note: ID Consult dictated R/O sepsis secondary to aspiration pneumonia Peptic ulcer Leukopenia Hx RA off immunosupressive meds Obtain BC CXR Empiric Unasyn
[2018-07-08] MEDS: ACETAMINOPHEN 650 MG/20.3 ML ORAL SOLUTION (CUPS) PO PRN (17:10)
[2018-07-08] MEDS: AMPICILLIN NA/SULBACTAM NA 3 GM in SODIUM CHLORIDE 100 ML IVPB SCH ×2 (17:16→21:39)
--- NOTE | 2018-07-08 17:44 | CONS ---
DATE OF CONSULTATION: 07/08/2018 HISTORY OF PRESENT ILLNESS: The patient is a 53-year-old female with a complicated past medical history. She has a long-standing history of rheumatoid arthritis on immunosuppressive therapy as well as a history of a gastric bypass approximately 10 years ago, now being evaluated for possible aspiration pneumonia. Her recent clinical course was complicated by abdominal pain for which she was hospitalized at [facility]. She was diagnosed with a small bowel obstruction and underwent a laparoscopic lysis of adhesions. Postoperatively, she continued to have abdominal pain. She was hospitalized at [facility], where she was endoscopically found to have an ulceration at the area of the surgical anastomosis from the bypass surgery. She was treated with Nexium and carafate with some symptomatic improvement. She was transferred to [facility] for evaluation by her bariatric surgeon with a view toward possible surgery in the setting of a previous bypass procedure. The patient underwent an EGD today. At the end of the procedure, the patient was noted to have bile refluxing into the oropharynx. There was concern about possible aspiration. The patient now has rigors and has occasional cough. Of note, the patient had a fever on the evening prior to the procedure. She denies any chest pain. No reported vomiting or urinary tract complaints. PAST MEDICAL HISTORY: Positive for long-standing rheumatoid arthritis, coronary artery disease, hypertension, hyperlipidemia. PAST SURGICAL HISTORY: Status post bypass surgery, orthopedic procedures for her rheumatoid arthritis, cervical spine and lumbar spine surgery, hysterectomy. ALLERGIES: No known allergies. MEDICATIONS: Tylenol, Xanax, Lipitor, Colace, Lexapro, Neurontin, Dilaudid, metoprolol, Protonix, Carafate. SOCIAL HISTORY: She lives in the community with her significant other. She is a former smoker. REVIEW OF SYSTEMS: Neurologic: No loss of consciousness, seizure activity or focal weakness. Cardiac: Negative for chest pain or palpitations. Respiratory: As per HPI. Gastrointestinal: As per HPI. Genitourinary: Negative for urinary tract infection. LABORATORY DATA: White count 2.4, neutrophils 43%, absolute neutrophil count 1.0, hematocrit 32.2, platelet count 244, creatinine 0.6. A urinalysis showed one white cell. A chest x-ray is pending. Blood cultures are preliminarily negative. PHYSICAL EXAMINATION: General: The patient is awake and alert. She has rigors in bed. Her breathing is unlabored. Vital Signs: Temperature 98.87, T-max of 101.3, blood pressure 117/78, pulse 67, respiratory rate 18 per minute. HEENT:: Sclerae anicteric. Heart: Heart sounds S1, S2. No murmur. Lungs: Grossly clear. No rhonchi, rales or wheezing. Abdomen: Soft with mild, diffuse tenderness. Extremities: Negative for edema. IMPRESSION: 1. Rule out sepsis secondary to aspiration pneumonia. 2. Peptic ulcer disease status post GI bleeding. 3. Leukopenia and borderline neutropenia. 4. History of rheumatoid arthritis, currently off immunosuppressive therapy. PLAN: 1. We will obtain blood cultures and a chest x-ray. 2. Empiric antibiotic coverage for probable aspiration with Unasyn 3 grams IV piggyback every 6 hours. 3. Await culture results. 4. Continue off immunosuppressive medications. 5. We will follow. Thank you for the kind referral. DELVIS SAM M.D. [id number]
--- NOTE | 2018-07-08 18:16 | PN ---
Progress Note, Physician Chief Complaint: Ms Hurtado complains of pain in her abdomen and cough after EGD. No cp, sob, n/v. - Current Medication List Current Medications: Active Medications Acetaminophen (Tylenol Oral Solution -) 650 mg PO Q4H PRN PRN Reason: FEVER Last Admin: 07/08/18 17:10 Dose: 650 mg Alprazolam (Xanax -) 0.5 mg PO Q8H PRN PRN Reason: ANXIETY Last Admin: 07/08/18 12:59 Dose: 0.5 mg Atorvastatin Calcium (Lipitor -) 40 mg PO HS [facility] Last Admin: 07/07/18 21:08 Dose: 40 mg Calcitriol (Rocaltrol -) 0.25 mcg PO DAILY [facility] Last Admin: 07/08/18 12:59 Dose: 0.25 mcg Docusate Sodium (Colace -) 100 mg PO BID [facility] Last Admin: 07/08/18 12:59 Dose: 100 mg Escitalopram Oxalate (Lexapro -) 20 mg PO DAILY [facility] Last Admin: 07/08/18 12:59 Dose: 20 mg Folic Acid (Folic Acid -) 1 mg PO DAILY [facility] Last Admin: 07/08/18 12:59 Dose: 1 mg Gabapentin (Neurontin Oral Liquid -) 100 mg PO TID [facility] Last Admin: 07/08/18 14:57 Dose: 100 mg Hydromorphone HCl (Dilaudid Vial -) 0.5 mg IVPB Q4H PRN PRN Reason: PAIN LEVEL 7 - 10 Last Admin: 07/07/18 21:19 Dose: 0.5 mg Lactated Ringer's (Lactated Ringers Solution) 1,000 mls @ 75 mls/hr IV ASDIR [facility] Last Admin: 07/08/18 03:47 Dose: 75 mls/hr Ampicillin Sodium/Sulbactam (Sodium 3 gm/ Sodium Chloride) 100 mls @ 200 mls/ hr IVPB Q6H-IV [facility] Last Admin: 07/08/18 17:16 Dose: 200 mls/hr Metoprolol Tartrate (Lopressor -) 25 mg PO DAILY [facility] Last Admin: 07/08/18 09:28 Dose: 25 mg Oxycodone HCl (Roxicodone -) 10 mg PO Q4H PRN PRN Reason: PAIN LEVEL 4 - 6 Last Admin: 07/08/18 12:58 Dose: 10 mg Pantoprazole Sodium (Protonix -) 20 mg PO DAILY [facility] Polyethylene Glycol (Miralax (For Daily Use) -) 17 gm PO DAILY [facility] Last Admin: 07/08/18 14:40 Dose: 17 gm Sucralfate (Carafate Oral Suspension -) 1 gm PO BID [facility] Zolpidem Tartrate (Ambien -) 10 mg PO HS PRN PRN Reason: INSOMNIA Last Admin: 07/07/18 21:19 Dose: 10 mg - Objective Vital Signs: Vital Signs Temperature 39.2 C H 07/08/18 16:20 Pulse Rate 95 H 07/08/18 16:20 Respiratory Rate 20 07/08/18 16:20 Blood Pressure 101/50 L 07/08/18 16:20 O2 Sat by Pulse Oximetry (%) 100 07/08/18 12:20 Constitutional: Yes: Well Nourished, No Distress, Calm Cardiovascular: Yes: Regular Rate and Rhythm. No: Gallop, Murmur, Rub Respiratory: Yes: Regular, Rhonchi. No: CTA Bilaterally, Rales, Wheezes Gastrointestinal: Yes: Normal Bowel Sounds, Soft. No: Distention, Tenderness Extremities: Yes: WNL Edema: No Labs: CBC, BMP 07/08/18 06:15 07/08/18 06:15 INR, PTT INR 1.15 (0.83-1.09) H 07/04/18 18:34 Problem List - Problems (1) Gastric ulcer Code(s): K25.9 - GASTRIC ULCER, UNSP ACUTE OR CHRONIC, W/O HEMOR OR PERF (2) CAD (coronary artery disease) Code(s): I25.10 - ATHSCL HEART DISEASE OF [place] CORONARY ARTERY W/O ANG PCTRS (3) HTN (hypertension) Code(s): I10 - ESSENTIAL (PRIMARY) HYPERTENSION (4) Rheumatoid arthritis Code(s): M06.9 - RHEUMATOID ARTHRITIS, UNSPECIFIED (5) Acute abdominal pain syndrome Code(s): R10.0 - ACUTE ABDOMEN (6) Depression Code(s): F32.9 - MAJOR DEPRESSIVE DISORDER, SINGLE EPISODE, UNSPECIFIED (7) Aspiration pneumonia Code(s): J69.0 - PNEUMONITIS DUE TO INHALATION OF FOOD AND VOMIT Assessment/Plan (1) Gastric ulcer Assessment/Plan: -s/p EGD -procedure results reviewed -on carafate and protonix -Dr Khoury to decide if surgical intervention is appropriate Code(s): K25.9 - GASTRIC ULCER, UNSP ACUTE OR CHRONIC, W/O HEMOR OR PERF (2) CAD (coronary artery disease) Assessment/Plan: -quiescent -continue metoprolol -continue statin -appreciate cardiology assistance Code(s): I25.10 - ATHSCL HEART DISEASE OF [place] CORONARY ARTERY W/O ANG PCTRS (3) HTN (hypertension) Assessment/Plan: -continue metoprolol -cozaar discontinued secondary to hypotension Code(s): I10 - ESSENTIAL (PRIMARY) HYPERTENSION (4) Rheumatoid arthritis Assessment/Plan: -continue gabapentin -appreciate rheumatology consult -hold on methotrexate and prednisone per Dr Khoury's recommendations Code(s): M06.9 - RHEUMATOID ARTHRITIS, UNSPECIFIED (5) Acute abdominal pain syndrome Assessment/Plan: -pain management consult placed -continue current regimen Code(s): R10.0 - ACUTE ABDOMEN (6) Depression Assessment/Plan: -continue lexapro Code(s): F32.9 - MAJOR DEPRESSIVE DISORDER, SINGLE EPISODE, UNSPECIFIED (7) Aspiration pneumonia -appreciate ID assistance -on empiric unasyn
[2018-07-08] MEDS ORDERED: PT OWN MED DRAWER 7, Y5N ONE (21:22)
[2018-07-08] MEDS: HYDROmorphone HCl 2 MG/ML VIAL IVPB PRN (21:35)
[2018-07-08] MEDS: ZOLPIDEM TARTRATE 5 MG TABLET PO PRN (21:38)
[2018-07-08] MEDS: ATORVASTATIN CA 40 MG TABLET (FP) PO SCH (21:38)
[2018-07-09] MEDS: AMPICILLIN NA/SULBACTAM NA 3 GM in SODIUM CHLORIDE 100 ML IVPB SCH ×4 (02:13→20:04)
[2018-07-09] MEDS: HYDROmorphone HCl 2 MG/ML VIAL IVPB PRN ×3 (02:26→15:24)
[2018-07-09] MEDS: ACETAMINOPHEN 650 MG/20.3 ML ORAL SOLUTION (CUPS) PO PRN ×2 (02:30→11:14)
[2018-07-09] MEDS: GABAPENTIN 250 MG/5 ML ORAL SOLUTION, 470 ML BOTTLE PO SCH ×3 (06:39→21:09)
[2018-07-09 07:35] LABS: BASO % 0.3 % (0-2.0); EOS % 0.1 % (0-4.5); HEMOGLOBIN 9.5 GM/dL (10.7-15.3); MCH 29.3 pg (25.7-33.7); MCHC 31.7 g/dl (32.0-36.0); MEAN CELL VOLUME 92.6 fl (80-96); MEAN PLT VOLUME 9.1 fl (7.5-11.1); NEUT % 80.6 % (42.8-82.8); PLATELET COUNT 214 K/MM3 (134-434); RBC 3.24 M/mm3 (3.60-5.2); RDW 19.8 % (11.6-15.6); WHITE BLOOD COUNT 8.5 K/mm3 (4.0-10.0)
[2018-07-09 08:55] LABS: ANION GAP 10 MMOL/L (8-16); BLOOD UREA NITROGEN 9 mg/dL (7-18); CALCIUM 8.1 mg/dL (8.5-10.1); CHLORIDE 105 mmol/L (98-107); CO2 26 mmol/L (21-32); CREATININE 0.5 mg/dL (0.55-1.3); GLUCOSE,RANDOM 81 mg/dL (74-106); PHOSPHOROUS 3.7 mg/dL (2.5-4.9); POTASSIUM 3.9 mmol/L (3.5-5.1); SODIUM 140 mmol/L (136-145)
[2018-07-09] MEDS: LACTATED RINGERS SOLUTION 1,000 ML IV SCH ×2 (11:06→17:40)
[2018-07-09] MEDS: SUCRALFATE 1 GM/10 ML UNIT DOSE CUPS PO SCH ×2 (11:09→21:10)
[2018-07-09] MEDS: FOLIC ACID 1 MG TABLET (FP) PO SCH (11:10)
[2018-07-09] MEDS: METOPROLOL TARTRATE 25 MG TABLET (FP) PO SCH (11:10)
[2018-07-09] MEDS: DOCUSATE SODIUM 100 MG CAPSULE (FP) PO SCH ×2 (11:11→21:10)
[2018-07-09] MEDS: CALCITRIOL 0.25 MCG CAPSULE (FP) PO SCH (11:11)
[2018-07-09] MEDS: PANTOPRAZOLE 20 MG TABLET (FP) PO SCH (11:11)
[2018-07-09] MEDS: ESCITALOPRAM OXALATE 20 MG TABLET (FP) PO SCH (11:11)
[2018-07-09] MEDS: POLYETHYLENE GLYCOL 3350 119 GM BTL PO SCH (11:11)
--- NOTE | 2018-07-09 14:16 | PN ---
Progress Note (short form) - Note Progress Note: - s: no chest pain, palps, dizzy, lightheadedness, edema Current Medications Generic Name Dose Route Start Last Admin Trade Name Cal PRN Reason Stop Dose Admin Acetaminophen 650 mg 07/05/18 12:25 07/09/18 11:14 Tylenol Oral Solution - PO 650 mg Q4H PRN Administration FEVER Alprazolam 0.5 mg 07/04/18 18:09 07/08/18 12:59 Xanax - PO 0.5 mg Q8H PRN Administration ANXIETY Atorvastatin Calcium 40 mg 07/04/18 22:00 07/08/18 21:38 Lipitor - PO 40 mg HS SARAH Administration Calcitriol 0.25 mcg 07/05/18 10:00 07/09/18 11:11 Rocaltrol - PO 0.25 mcg DAILY SARAH Administration Docusate Sodium 100 mg 07/04/18 22:00 07/09/18 11:11 Colace - PO 100 mg BID SARAH Administration Escitalopram Oxalate 20 mg 07/05/18 10:00 07/09/18 11:11 Lexapro - PO 20 mg DAILY SARAH Administration Folic Acid 1 mg 07/05/18 10:00 07/09/18 11:10 Folic Acid - PO 1 mg DAILY SARAH Administration Gabapentin 100 mg 07/04/18 22:00 07/09/18 06:39 Neurontin Oral Liquid - PO 100 mg TID SARAH Administration Hydromorphone HCl 0.5 mg 07/04/18 18:12 07/09/18 11:12 Dilaudid Vial - IVPB 0.5 mg Q4H PRN Administration PAIN LEVEL 7 - 10 Lactated Ringer's 1,000 mls @ 75 mls/hr 07/04/18 16:45 07/09/18 11:06 Lactated Ringers Solution IV 75 mls/hr ASDIR SARAH Administration Ampicillin Sodium/Sulbactam 100 mls @ 200 mls/hr 07/08/18 16:00 07/09/18 11: 08 Sodium 3 gm/ Sodium Chloride IVPB 200 mls/hr Q6H-IV SARAH Administration Metoprolol Tartrate 25 mg 07/05/18 10:00 07/09/18 11:10 Lopressor - PO 25 mg DAILY SARAH Administration Oxycodone HCl 10 mg 07/05/18 12:32 07/08/18 12:58 Roxicodone - PO 10 mg Q4H PRN Administration PAIN LEVEL 4 - 6 Pantoprazole Sodium 20 mg 07/09/18 10:00 07/09/18 11:11 Protonix - PO 20 mg DAILY SARAH Administration Polyethylene Glycol 17 gm 07/05/18 10:00 07/09/18 11:11 Miralax (For Daily Use) - PO 17 gm DAILY SARAH Administration Sucralfate 1 gm 07/08/18 22:00 07/09/18 11:09 Carafate Oral Suspension - PO 1 gm BID SARAH Administration Zolpidem Tartrate 10 mg 07/04/18 18:08 07/08/18 21:38 Ambien - PO 10 mg HS PRN Administration INSOMNIA Vital Signs Period Temp Pulse Resp BP Sys/Joseph Pulse Ox Last 24 Hr 98.6 F-102.6 F 73-95 18-20 92-112/50-67 94 No distress, comfortable JVP normal Regular rate, no murmurs Lungs CTAB Abd is mild TTP epigastric area No LE edema no jaundice diaphoresis EC07/05/2018 at 09:52 NSR at 73/min with T-wave inversions in leads V4-V6 and II, II and AvF ECG 09/19/17 sinus, old inf infarct, TWI II, III, aVF, V4-V6, PVC mibi 05/2017 large scar involving inferior and inferolateral barbour. 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
--- NOTE | 2018-07-09 14:33 | PN ---
Progress Note (short form) - Note Progress Note: Bariatric Surgery Pt unchanged Had 102.6 temp last evening Now afebrile No N/V Tolerating PO liquids WBC-8.5 (increased from 2.4) H/H-9.5/30 (stable) P/E-Abd- soft, non-tender on palpation P- CT Scan of Abd/Pelvis (pending) PO soft diet after CT scan ID F/U for LLL infiltrate
--- NOTE | 2018-07-09 16:47 | PN ---
Progress Note, Physician Chief Complaint: Feels better with less abd pain. - Current Medication List Current Medications: Active Medications Acetaminophen (Tylenol Oral Solution -) 650 mg PO Q4H PRN PRN Reason: FEVER Last Admin: 07/09/18 11:14 Dose: 650 mg Alprazolam (Xanax -) 0.5 mg PO Q8H PRN PRN Reason: ANXIETY Last Admin: 07/08/18 12:59 Dose: 0.5 mg Atorvastatin Calcium (Lipitor -) 40 mg PO HS [facility] Last Admin: 07/08/18 21:38 Dose: 40 mg Calcitriol (Rocaltrol -) 0.25 mcg PO DAILY [facility] Last Admin: 07/09/18 11:11 Dose: 0.25 mcg Docusate Sodium (Colace -) 100 mg PO BID [facility] Last Admin: 07/09/18 11:11 Dose: 100 mg Escitalopram Oxalate (Lexapro -) 20 mg PO DAILY [facility] Last Admin: 07/09/18 11:11 Dose: 20 mg Folic Acid (Folic Acid -) 1 mg PO DAILY [facility] Last Admin: 07/09/18 11:10 Dose: 1 mg Gabapentin (Neurontin Oral Liquid -) 100 mg PO TID [facility] Last Admin: 07/09/18 14:26 Dose: 100 mg Hydromorphone HCl (Dilaudid Vial -) 0.5 mg IVPB Q4H PRN PRN Reason: PAIN LEVEL 7 - 10 Last Admin: 07/09/18 15:24 Dose: 0.5 mg Lactated Ringer's (Lactated Ringers Solution) 1,000 mls @ 75 mls/hr IV ASDIR [facility] Last Admin: 07/09/18 11:06 Dose: 75 mls/hr Ampicillin Sodium/Sulbactam (Sodium 3 gm/ Sodium Chloride) 100 mls @ 200 mls/ hr IVPB Q6H-IV [facility] Last Admin: 07/09/18 14:27 Dose: 200 mls/hr Metoprolol Tartrate (Lopressor -) 25 mg PO DAILY [facility] Last Admin: 07/09/18 11:10 Dose: 25 mg Oxycodone HCl (Roxicodone -) 10 mg PO Q4H PRN PRN Reason: PAIN LEVEL 4 - 6 Last Admin: 07/08/18 12:58 Dose: 10 mg Pantoprazole Sodium (Protonix -) 20 mg PO DAILY [facility] Last Admin: 07/09/18 11:11 Dose: 20 mg Polyethylene Glycol (Miralax (For Daily Use) -) 17 gm PO DAILY [facility] Last Admin: 07/09/18 11:11 Dose: 17 gm Sucralfate (Carafate Oral Suspension -) 1 gm PO BID [facility] Last Admin: 07/09/18 11:09 Dose: 1 gm Zolpidem Tartrate (Ambien -) 10 mg PO HS PRN PRN Reason: INSOMNIA Last Admin: 07/08/18 21:38 Dose: 10 mg - Objective Vital Signs: Vital Signs Temperature 98.4 F 07/09/18 15:07 Pulse Rate 61 07/09/18 15:07 Respiratory Rate 18 07/09/18 15:07 Blood Pressure 110/52 L 07/09/18 15:07 O2 Sat by Pulse Oximetry (%) 94 L 07/08/18 22:00 Gastrointestinal: Yes: Tenderness (mildly tender over epigastric area.) Labs: CBC, BMP 07/09/18 06:30 07/09/18 06:30 INR, PTT INR 1.15 (0.83-1.09) H 07/04/18 18:34 Problem List - Problems (1) Acute abdominal pain syndrome Code(s): R10.0 - ACUTE ABDOMEN (2) CAD (coronary artery disease) Code(s): I25.10 - ATHSCL HEART DISEASE OF [place] CORONARY ARTERY W/O ANG PCTRS (3) Depression Code(s): F32.9 - MAJOR DEPRESSIVE DISORDER, SINGLE EPISODE, UNSPECIFIED (4) Gastric ulcer Code(s): K25.9 - GASTRIC ULCER, UNSP ACUTE OR CHRONIC, W/O HEMOR OR PERF (5) HTN (hypertension) Code(s): I10 - ESSENTIAL (PRIMARY) HYPERTENSION (6) Rheumatoid arthritis Code(s): M06.9 - RHEUMATOID ARTHRITIS, UNSPECIFIED Impression/Plan Impression/Plan: The patient was seen and examined at bedside. Feels better today. Tolerating full liquid diet. Had EGD / BX. Afebrile at this time. If spikes again , would cover for HCAP, given LLL opacity > ID eval. H/H remains stable. Plan d/w patient at bedside. Visit type - Emergency Visit Emergency Visit: Yes ED Registration Date: 07/04/18 Care time: The patient presented to the Emergency Department on the above date and was hospitalized for further evaluation of their emergent condition. - New Patient This patient is new to me today: Yes Date on this admission: 07/09/18 - Critical Care Critical Care patient: No
--- NOTE | 2018-07-09 16:53 | PN ---
Progress Note, Physician History of Present Illness: More comfortable today Temps down No further rigors CXR shows new L infiltrate Cultures pending - Current Medication List Current Medications: Active Medications Acetaminophen (Tylenol Oral Solution -) 650 mg PO Q4H PRN PRN Reason: FEVER Last Admin: 07/09/18 11:14 Dose: 650 mg Alprazolam (Xanax -) 0.5 mg PO Q8H PRN PRN Reason: ANXIETY Last Admin: 07/08/18 12:59 Dose: 0.5 mg Atorvastatin Calcium (Lipitor -) 40 mg PO HS [facility] Last Admin: 07/08/18 21:38 Dose: 40 mg Calcitriol (Rocaltrol -) 0.25 mcg PO DAILY [facility] Last Admin: 07/09/18 11:11 Dose: 0.25 mcg Docusate Sodium (Colace -) 100 mg PO BID [facility] Last Admin: 07/09/18 11:11 Dose: 100 mg Escitalopram Oxalate (Lexapro -) 20 mg PO DAILY [facility] Last Admin: 07/09/18 11:11 Dose: 20 mg Folic Acid (Folic Acid -) 1 mg PO DAILY [facility] Last Admin: 07/09/18 11:10 Dose: 1 mg Gabapentin (Neurontin Oral Liquid -) 100 mg PO TID [facility] Last Admin: 07/09/18 14:26 Dose: 100 mg Hydromorphone HCl (Dilaudid Vial -) 0.5 mg IVPB Q4H PRN PRN Reason: PAIN LEVEL 7 - 10 Last Admin: 07/09/18 15:24 Dose: 0.5 mg Lactated Ringer's (Lactated Ringers Solution) 1,000 mls @ 75 mls/hr IV ASDIR [facility] Last Admin: 07/09/18 11:06 Dose: 75 mls/hr Ampicillin Sodium/Sulbactam (Sodium 3 gm/ Sodium Chloride) 100 mls @ 200 mls/ hr IVPB Q6H-IV [facility] Last Admin: 07/09/18 14:27 Dose: 200 mls/hr Metoprolol Tartrate (Lopressor -) 25 mg PO DAILY [facility] Last Admin: 07/09/18 11:10 Dose: 25 mg Oxycodone HCl (Roxicodone -) 10 mg PO Q4H PRN PRN Reason: PAIN LEVEL 4 - 6 Last Admin: 11/20/18 12:58 Dose: 10 mg Pantoprazole Sodium (Protonix -) 20 mg PO DAILY [facility] Last Admin: 07/09/18 11:11 Dose: 20 mg Polyethylene Glycol (Miralax (For Daily Use) -) 17 gm PO DAILY [facility] Last Admin: 07/09/18 11:11 Dose: 17 gm Sucralfate (Carafate Oral Suspension -) 1 gm PO BID [facility] Last Admin: 07/09/18 11:09 Dose: 1 gm Zolpidem Tartrate (Ambien -) 10 mg PO HS PRN PRN Reason: INSOMNIA Last Admin: 07/08/18 21:38 Dose: 10 mg - Objective Vital Signs: Vital Signs Temperature 98.4 F 07/09/18 15:07 Pulse Rate 61 07/09/18 15:07 Respiratory Rate 18 07/09/18 15:07 Blood Pressure 110/52 L 07/09/18 15:07 O2 Sat by Pulse Oximetry (%) 94 L 07/08/18 22:00 Constitutional: Yes: No Distress, Thin Cardiovascular: Yes: Regular Rate and Rhythm, S1, S2 Respiratory: Yes: CTA Bilaterally Gastrointestinal: Yes: Normal Bowel Sounds, Soft Edema: No Labs: CBC, BMP 07/09/18 06:30 07/09/18 06:30 INR, PTT INR 1.15 (0.83-1.09) H 07/04/18 18:34 Assessment/Plan Probable aspiration pneumonia PUD RA off immunosuppressive tx Await c/s Continue Unasyn
[2018-07-09] MEDS ORDERED: PT OWN MED DRAWER 7, Y5N ONE (19:54)
[2018-07-09] MEDS: oxyCODONE HCL 5 MG TABLET PO PRN (20:14)
[2018-07-09] MEDS: ATORVASTATIN CA 40 MG TABLET (FP) PO SCH (21:10)
[2018-07-09] MEDS: ZOLPIDEM TARTRATE 5 MG TABLET PO PRN (21:16)
[2018-07-10] MEDS ORDERED: PT OWN MED DRAWER 7, Y5N ONE ×2 (02:01→20:08)
[2018-07-10] MEDS: AMPICILLIN NA/SULBACTAM NA 3 GM in SODIUM CHLORIDE 100 ML IVPB SCH ×4 (02:10→21:23)
[2018-07-10] MEDS: oxyCODONE HCL 5 MG TABLET PO PRN ×3 (02:24→17:47)
[2018-07-10] MEDS: ALPRAZolam 0.25 MG TABLET PO PRN ×2 (02:24→21:21)
[2018-07-10] MEDS: GABAPENTIN 250 MG/5 ML ORAL SOLUTION, 470 ML BOTTLE PO SCH ×3 (06:26→21:20)
[2018-07-10] MEDS: HYDROmorphone HCl 2 MG/ML VIAL IVPB PRN ×2 (06:38→21:22)
--- NOTE | 2018-07-10 08:41 | PN ---
GI Progress Note Subjective: Sitting up eating breakfast States bringing up green sputum Continued pain right after eating. Also with pain in LUQ - Objective Vital Signs: Vital Signs Temperature 100.5 F H 07/10/18 06:00 Pulse Rate 84 07/10/18 06:00 Respiratory Rate 20 07/10/18 06:00 Blood Pressure 134/74 07/10/18 06:00 O2 Sat by Pulse Oximetry (%) 100 07/09/18 21:00 Constitutional: Calm Eyes: No: Sclera Icterus Cardiovascular: Yes: Regular Rate and Rhythm. No: Murmur Respiratory: Yes: CTA Bilaterally Gastrointestinal Inspection: No: Distention ...Auscultate: Yes: Normoactive Bowel Sounds ...Palpate: Yes: Soft, Tenderness (TTP upper abdomen). No: Guarding, Tenderness , Rebound ...Percussion: No: Tympanitic Edema: No (No LE edema) Neurological: Yes: Alert, Oriented Labs: CBC, BMP 07/09/18 06:30 07/09/18 06:30 INR, PTT INR 1.15 (0.83-1.09) H 07/04/18 18:34 Hepatic Panel Total Bilirubin 0.6 mg/dL (0.2-1) 07/08/18 06:15 AST 17 U/L (15-37) 07/08/18 06:15 ALT 16 U/L (13-61) 07/08/18 06:15 Alkaline Phosphatase 55 U/L (45-117) 07/08/18 06:15 Albumin 2.7 g/dl (3.4-5.0) L 07/08/18 06:15 Problem List - Problems (1) Gastric ulcer Assessment/Plan: Marginal ulcer noted just distal to the gastroenteric anastamosis On carafate / protonix CT enterography performed. Awaiting report Seen by ID: suspected aspiration PNA, on zosyn CBC ordered for today Code(s): K25.9 - GASTRIC ULCER, UNSP ACUTE OR CHRONIC, W/O HEMOR OR PERF
--- NOTE | 2018-07-10 09:11 | PN ---
Teaching Attending Note Name of Resident: Uziel White ATTENDING PHYSICIAN STATEMENT I saw and evaluated the patient. I reviewed the resident's note and discussed the case with the resident. I agree with the resident's findings and plan as documented. SUBJECTIVE:states she is having pain on advance diet. in her LUQ that radiates to her R side. denies CP, SOB, fever, chills, N/V. states no BM for 4 days OBJECTIVE: Last Vital Signs Temp Pulse Resp BP Pulse Ox 100.5 F H 84 20 134/74 100 07/10/18 06:00 07/10/18 06:00 07/10/18 06:00 07/10/18 06:00 07/09/18 21:00 General nAD CV S1 S2 RRR no murmur/rub/gallop Lungs CTA B/L no wheezing/rales/rhonchi Abdomen soft +RUQ/LUQ pain negative florse sign ASSESSMENT AND PLAN: 53 year old female who was transferred from [facility] to be seen by her original gastric bypass surgery Dr Khoury for evaluation of ulceration at site of anastamosis 1. Gastric ulcer- s/p EGD. CT push enterography was done and still awaiting report to determine if intervention is necessary/ diet advanced to soft yesterday however pt is having pain with eating. will place back on liquid. on carfate. states pain is uncontrolled, was getting higher doses of oxycodone at home. will istop and re-start home medications. Surgery adn GI on board. 2. Aspiration PNA- Tm 100.5. leukocytosis resolved. on unasyn. ID on board 3. Anemia- stable. no signs of bleeding. monitor .,no indication for transfusion 4. constipation- liekly due to decreased po intake and opiates. has been NPO with diet just advanced yesterday. will increase stool softeners. if no BM in 48H would consider relistor 5. CAD s/p stents 6. HTN 7. DVT ppx- SCD pt takes oxycodone 20mg po Q8H, last refill was 03/06, will adjust pain medications accordingly Reference #: [id number]
[2018-07-10] MEDS: SUCRALFATE 1 GM/10 ML UNIT DOSE CUPS PO SCH ×2 (09:34→21:23)
[2018-07-10] MEDS: ACETAMINOPHEN 650 MG/20.3 ML ORAL SOLUTION (CUPS) PO PRN (09:35)
[2018-07-10] MEDS: ESCITALOPRAM OXALATE 20 MG TABLET (FP) PO SCH (09:36)
[2018-07-10] MEDS: FOLIC ACID 1 MG TABLET (FP) PO SCH (09:36)
[2018-07-10] MEDS: CALCITRIOL 0.25 MCG CAPSULE (FP) PO SCH (09:36)
[2018-07-10] MEDS: PANTOPRAZOLE 20 MG TABLET (FP) PO SCH (09:37)
[2018-07-10] MEDS: METOPROLOL TARTRATE 25 MG TABLET (FP) PO SCH (09:37)
[2018-07-10] MEDS: DOCUSATE SODIUM 100 MG CAPSULE (FP) PO SCH ×2 (09:37→21:21)
[2018-07-10] MEDS: POLYETHYLENE GLYCOL 3350 119 GM BTL PO SCH ×2 (09:38→21:20)
[2018-07-10 09:54] LABS: BASO % 0.4 % (0-2.0); EOS % 0.3 % (0-4.5); HEMATOCRIT 29.6 % (32.4-45.2); HEMOGLOBIN 9.4 GM/dL (10.7-15.3); LYMPH % 14.3 % (8-40); MCH 29.1 pg (25.7-33.7); MCHC 31.7 g/dl (32.0-36.0); MEAN CELL VOLUME 91.8 fl (80-96); MONO % 13.5 % (3.8-10.2); NEUT % 71.5 % (42.8-82.8); PLATELET COUNT 208 K/MM3 (134-434); RBC 3.23 M/mm3 (3.60-5.2); RDW 19.4 % (11.6-15.6); WHITE BLOOD COUNT 4.5 K/mm3 (4.0-10.0)
--- NOTE | 2018-07-10 10:37 | PN ---
Progress Note, Physician Chief Complaint: abd pain History of Present Illness: no cp, sob. no palpit, syncope - Current Medication List Current Medications: Active Medications Acetaminophen (Tylenol Oral Solution -) 650 mg PO Q4H PRN PRN Reason: FEVER Last Admin: 07/10/18 09:35 Dose: 650 mg Alprazolam (Xanax -) 0.5 mg PO Q8H PRN PRN Reason: ANXIETY Last Admin: 07/10/18 02:24 Dose: 0.5 mg Atorvastatin Calcium (Lipitor -) 40 mg PO HS [facility] Last Admin: 07/09/18 21:10 Dose: 40 mg Calcitriol (Rocaltrol -) 0.25 mcg PO DAILY [facility] Last Admin: 07/10/18 09:36 Dose: 0.25 mcg Docusate Sodium (Colace -) 300 mg PO [facility] Escitalopram Oxalate (Lexapro -) 20 mg PO DAILY [facility] Last Admin: 07/10/18 09:36 Dose: 20 mg Folic Acid (Folic Acid -) 1 mg PO DAILY [facility] Last Admin: 07/10/18 09:36 Dose: 1 mg Gabapentin (Neurontin Oral Liquid -) 100 mg PO TID [facility] Last Admin: 07/10/18 06:26 Dose: 100 mg Hydromorphone HCl (Dilaudid Vial -) 0.5 mg IVPB Q4H PRN PRN Reason: PAIN LEVEL 7 - 10 Last Admin: 07/10/18 06:38 Dose: 0.5 mg Lactated Ringer's (Lactated Ringers Solution) 1,000 mls @ 75 mls/hr IV ASDIR [facility] Last Admin: 07/09/18 17:40 Dose: Not Given Ampicillin Sodium/Sulbactam (Sodium 3 gm/ Sodium Chloride) 100 mls @ 200 mls/ hr IVPB Q6H-IV [facility] Last Admin: 07/10/18 09:34 Dose: 200 mls/hr Metoprolol Tartrate (Lopressor -) 25 mg PO DAILY [facility] Last Admin: 07/10/18 09:37 Dose: 25 mg Oxycodone HCl (Roxicodone -) 10 mg PO Q4H PRN PRN Reason: PAIN LEVEL 4 - 6 Last Admin: 07/10/18 09:38 Dose: 10 mg Pantoprazole Sodium (Protonix -) 20 mg PO DAILY [facility] Last Admin: 07/10/18 09:37 Dose: 20 mg Polyethylene Glycol (Miralax (For Daily Use) -) 17 gm PO BID SARAH Sucralfate (Carafate Oral Suspension -) 1 gm PO BID [facility] Last Admin: 07/10/18 09:34 Dose: 1 gm Zolpidem Tartrate (Ambien -) 10 mg PO HS PRN PRN Reason: INSOMNIA Last Admin: 07/09/18 21:16 Dose: 10 mg - Objective Vital Signs: Vital Signs Temperature 100.5 F H 07/10/18 06:00 Pulse Rate 84 07/10/18 06:00 Respiratory Rate 20 07/10/18 06:00 Blood Pressure 134/74 07/10/18 06:00 O2 Sat by Pulse Oximetry (%) 100 07/09/18 21:00 Constitutional: Yes: Well Nourished, No Distress, Calm Cardiovascular: Yes: Regular Rate and Rhythm, S1, S2. No: Gallop, Murmur Respiratory: Yes: Regular, CTA Bilaterally. No: Accessory Muscle Use, Rales, Wheezes Extremities: No: Cold Edema: No Neurological: Yes: Alert, Oriented Psychiatric: No: Agitated Labs: CBC, BMP 07/10/18 09:05 07/09/18 06:30 INR, PTT INR 1.15 (0.83-1.09) H 07/04/18 18:34 Assessment/Plan EC07/05/2018 at 09:52 NSR at 73/min with T-wave inversions in leads V4-V6 and II, II and AvF ECG 09/19/17 sinus, old inf infarct, TWI II, III, aVF, V4-V6, PVC mibi 05/2017 large scar involving inferior and inferolateral barbour. inf and inferolat barbour are akinetic and EF 43%, no ischemia a/p: Preoperative clearance, UGI bleeding, lucy-anastomosis ulcer - reviewed records from [facility], no ischemic on recent stress test, EKG stable compared to prior - stable from cardiac perspective, no s/sx of active ischemia or chf. 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
[2018-07-10] MEDS: LACTATED RINGERS SOLUTION 1,000 ML IV SCH ×2 (14:01→17:49)
--- NOTE | 2018-07-10 14:22 | PN ---
Physical Exam: SUBJECTIVE: Patient seen and examined at bedside. Complaining of LUQ pain with diet. Denies CP,ETIENNE, SOB, palpitations, nausea or vomiting. OBJECTIVE: Vital Signs Period Temp Pulse Resp BP Sys/Joseph Pulse Ox Last 24 Hr 98.4 F-100.5 F 61-84 18-20 103-134/52-74 100-100 GENERAL:Awake and alert, NAD LUNGS: CTAB, no wheezes, no crackles, no accessory muscle use. HEART: Regular rate and rhythm, S1, S2 without murmur, rub or gallop. ABDOMEN: Soft, bilateral upper quadrant tenderness. , normoactive bowel sounds EXTREMITIES: 2+ pulses, warm, well-perfused, no edema. NEUROLOGICAL: Cranial nerves II through XII grossly intact. Normal speech, gait not observed. PSYCH: Normal mood, normal affect. SKIN: Warm, dry, normal turgor, no rashes or lesions noted Laboratory Results - last 24 hr 07/10/18 09:05 WBC 4.5 RBC 3.23 L Hgb 9.4 L Hct 29.6 L MCV 91.8 MCH 29.1 MCHC 31.7 L RDW 19.4 H Plt Count 208 MPV 9.0 Absolute Neuts (auto) 3.2 Neutrophils % 71.5 Lymphocytes % 14.3 D Monocytes % 13.5 H Eosinophils % 0.3 D Basophils % 0.4 Nucleated RBC % 0 Active Medications Generic Name Dose Route Start Last Admin Trade Name Freq PRN Reason Stop Dose Admin Acetaminophen 650 mg 07/05/18 12:25 07/10/18 09:35 Tylenol Oral Solution - PO 650 mg Q4H PRN Administration FEVER Alprazolam 0.5 mg 07/04/18 18:09 07/10/18 02:24 Xanax - PO 0.5 mg Q8H PRN Administration ANXIETY Atorvastatin Calcium 40 mg 07/04/18 22:00 07/09/18 21:10 Lipitor - PO 40 mg HS SARAH Administration Calcitriol 0.25 mcg 07/05/18 10:00 07/10/18 09:36 Rocaltrol - PO 0.25 mcg DAILY SARAH Administration Docusate Sodium 300 mg 07/10/18 22:00 Colace - PO HS SARAH Escitalopram Oxalate 20 mg 07/05/18 10:00 07/10/18 09:36 Lexapro - PO 20 mg DAILY SARAH Administration Folic Acid 1 mg 07/05/18 10:00 07/10/18 09:36 Folic Acid - PO 1 mg DAILY SARAH Administration Gabapentin 100 mg 07/04/18 22:00 07/10/18 13:59 Neurontin Oral Liquid - PO 100 mg TID SARAH Administration Hydromorphone HCl 0.5 mg 07/04/18 18:12 07/10/18 06:38 Dilaudid Vial - IVPB 0.5 mg Q4H PRN Administration PAIN LEVEL 7 - 10 Lactated Ringer's 1,000 mls @ 75 mls/hr 07/04/18 16:45 07/10/18 14:01 Lactated Ringers Solution IV 75 mls/hr ASDIR SARAH Administration Ampicillin Sodium/Sulbactam 100 mls @ 200 mls/hr 07/08/18 16:00 07/10/18 14: 01 Sodium 3 gm/ Sodium Chloride IVPB 200 mls/hr Q6H-IV SARAH Administration Metoprolol Tartrate 25 mg 07/05/18 10:00 07/10/18 09:37 Lopressor - PO 25 mg DAILY SARAH Administration Oxycodone HCl 20 mg 07/10/18 12:24 Roxicodone - PO Q4H PRN PAIN LEVEL 4 - 6 Pantoprazole Sodium 20 mg 07/09/18 10:00 07/10/18 09:37 Protonix - PO 20 mg DAILY SARAH Administration Polyethylene Glycol 17 gm 07/10/18 22:00 Miralax (For Daily Use) - PO BID SARAH Sucralfate 1 gm 07/08/18 22:00 07/10/18 09:34 Carafate Oral Suspension - PO 1 gm BID SARAH Administration Zolpidem Tartrate 10 mg 07/04/18 18:08 07/09/18 21:16 Ambien - PO 10 mg HS PRN Administration INSOMNIA ASSESSMENT/PLAN: 53 year old female who was transferred from [facility] to be seen by her original gastric bypass surgery Dr Khoury for evaluation of ulceration at site of anastamosis Problem List - Problems (1) Gastric ulcer Assessment/Plan: s/p EGD. * CT push enterography was done and still awaiting report to determine if intervention is necessary/ * diet advanced to soft yesterday however pt is having pain will place back on liquid. * Continue Carafate. (2) Aspiration pneumonia Assessment/Plan: No fevers or Leukocytosis. * Cont. Unasyn * ID on board. (3) CAD (coronary artery disease) (4) Constipation Assessment/Plan: most likely secondary to decreased PO intake. and opiates * Will increase stool softners and monitor BM's Visit type - Emergency Visit Emergency Visit: Yes ED Registration Date: 07/04/18 Care time: The patient presented to the Emergency Department on the above date and was hospitalized for further evaluation of their emergent condition. - New Patient This patient is new to me today: Yes Date on this admission: 07/10/18 - Critical Care Critical Care patient: No
[2018-07-10] MEDS: ZOLPIDEM TARTRATE 5 MG TABLET PO PRN (21:21)
[2018-07-10] MEDS: ATORVASTATIN CA 40 MG TABLET (FP) PO SCH (21:22)
[2018-07-11] MEDS: oxyCODONE HCL 5 MG TABLET PO PRN ×4 (01:32→21:17)
[2018-07-11] MEDS ORDERED: PT OWN MED DRAWER 7, Y5N ONE ×3 (02:25→13:54)
[2018-07-11] MEDS: AMPICILLIN NA/SULBACTAM NA 3 GM in SODIUM CHLORIDE 100 ML IVPB SCH ×3 (02:29→14:00)
[2018-07-11] MEDS: HYDROmorphone HCl 2 MG/ML VIAL IVPB PRN ×3 (05:12→15:53)
[2018-07-11] MEDS: GABAPENTIN 250 MG/5 ML ORAL SOLUTION, 470 ML BOTTLE PO SCH ×3 (06:54→21:16)
[2018-07-11] MEDS: CEFTRIAXONE 1 GM in DEXTROSE 5%-WATER - 50 ML IVPB SCH (07:29)
[2018-07-11] MEDS: SUCRALFATE 1 GM/10 ML UNIT DOSE CUPS PO SCH ×3 (07:32→21:15)
[2018-07-11 07:57] LABS: BASO % 0.6 % (0-2.0); EOS % 1.1 % (0-4.5); HEMATOCRIT 28.9 % (32.4-45.2); HEMOGLOBIN 9.3 GM/dL (10.7-15.3); LYMPH % 17.5 % (8-40); MCH 29.2 pg (25.7-33.7); MEAN CELL VOLUME 91.3 fl (80-96); MEAN PLT VOLUME 8.8 fl (7.5-11.1); MONO % 15.8 % (3.8-10.2); PLATELET COUNT 204 K/MM3 (134-434); RBC 3.17 M/mm3 (3.60-5.2); RDW 19.7 % (11.6-15.6); WHITE BLOOD COUNT 2.9 K/mm3 (4.0-10.0)
[2018-07-11 08:24] LABS: ALBUMIN 2.3 g/dl (3.4-5.0); ALK PHOS 51 U/L (45-117); ANION GAP 8 MMOL/L (8-16); BILIRUBIN,TOTAL 0.5 mg/dL (0.2-1); BLOOD UREA NITROGEN 4 mg/dL (7-18); CALCIUM 7.8 mg/dL (8.5-10.1); CHLORIDE 105 mmol/L (98-107); CO2 28 mmol/L (21-32); CREATININE 0.6 mg/dL (0.55-1.3); GLUCOSE,RANDOM 72 mg/dL (74-106); POTASSIUM 3.9 mmol/L (3.5-5.1); SGOT/AST 18 U/L (15-37); SGPT/ALT 16 U/L (13-61); SODIUM 140 mmol/L (136-145); TOT PROT 5.9 g/dl (6.4-8.2)
[2018-07-11] MEDS: FOLIC ACID 1 MG TABLET (FP) PO SCH (11:19)
[2018-07-11] MEDS: METOPROLOL TARTRATE 25 MG TABLET (FP) PO SCH (11:19)
[2018-07-11] MEDS: PANTOPRAZOLE 20 MG TABLET (FP) PO SCH (11:19)
[2018-07-11] MEDS: ESCITALOPRAM OXALATE 20 MG TABLET (FP) PO SCH (11:19)
[2018-07-11] MEDS: CALCITRIOL 0.25 MCG CAPSULE (FP) PO SCH (11:19)
[2018-07-11] MEDS: POLYETHYLENE GLYCOL 3350 119 GM BTL PO SCH ×2 (11:20→21:16)
[2018-07-11] MEDS: ACETAMINOPHEN 650 MG/20.3 ML ORAL SOLUTION (CUPS) PO PRN ×2 (11:30→16:37)
--- NOTE | 2018-07-11 13:59 | PN ---
Progress Note, Physician History of Present Illness: No c/o chest pain/ dyspnea/ cough Low grade temp No further rigors CXR shows improvement L infiltrate BC no growth - Current Medication List Current Medications: Active Medications Acetaminophen (Tylenol Oral Solution -) 650 mg PO Q4H PRN PRN Reason: FEVER Last Admin: 07/11/18 11:30 Dose: 650 mg Alprazolam (Xanax -) 0.5 mg PO Q8H PRN PRN Reason: ANXIETY Last Admin: 07/10/18 21:21 Dose: 0.5 mg Atorvastatin Calcium (Lipitor -) 40 mg PO HS [facility] Last Admin: 07/10/18 21:22 Dose: 40 mg Calcitriol (Rocaltrol -) 0.25 mcg PO DAILY [facility] Last Admin: 07/11/18 11:19 Dose: 0.25 mcg Docusate Sodium (Colace -) 300 mg PO [facility] Last Admin: 07/10/18 21:21 Dose: 300 mg Escitalopram Oxalate (Lexapro -) 20 mg PO DAILY [facility] Last Admin: 07/11/18 11:19 Dose: 20 mg Folic Acid (Folic Acid -) 1 mg PO DAILY [facility] Last Admin: 07/11/18 11:19 Dose: 1 mg Gabapentin (Neurontin Oral Liquid -) 100 mg PO TID [facility] Last Admin: 07/11/18 06:54 Dose: 100 mg Hydromorphone HCl (Dilaudid Vial -) 0.5 mg IVPB Q4H PRN PRN Reason: PAIN LEVEL 7 - 10 Last Admin: 07/11/18 09:47 Dose: 0.5 mg Lactated Ringer's (Lactated Ringers Solution) 1,000 mls @ 75 mls/hr IV ASDIR [facility] Last Admin: 07/10/18 17:49 Dose: Not Given Ampicillin Sodium/Sulbactam (Sodium 3 gm/ Sodium Chloride) 100 mls @ 200 mls/ hr IVPB Q6H-IV [facility] Last Admin: 07/11/18 08:15 Dose: 200 mls/hr Metoprolol Tartrate (Lopressor -) 25 mg PO DAILY [facility] Last Admin: 07/11/18 11:19 Dose: 25 mg Oxycodone HCl (Roxicodone -) 20 mg PO Q4H PRN PRN Reason: PAIN LEVEL 4 - 6 Last Admin: 07/11/18 11:30 Dose: 20 mg Pantoprazole Sodium (Protonix -) 20 mg PO DAILY [facility] Last Admin: 07/11/18 11:19 Dose: 20 mg Polyethylene Glycol (Miralax (For Daily Use) -) 17 gm PO BID [facility] Last Admin: 07/11/18 11:20 Dose: 17 grams Sucralfate (Carafate Oral Suspension -) 1 gm PO BID [facility] Last Admin: 07/11/18 11:19 Dose: 1 gm Zolpidem Tartrate (Ambien -) 10 mg PO HS PRN PRN Reason: INSOMNIA Last Admin: 07/10/18 21:21 Dose: 10 mg - Objective Vital Signs: Vital Signs Temperature 99 F 07/11/18 06:00 Pulse Rate 80 07/11/18 06:00 Respiratory Rate 20 07/11/18 06:00 Blood Pressure 111/74 07/11/18 06:00 O2 Sat by Pulse Oximetry (%) 98 07/10/18 21:00 Constitutional: Yes: No Distress, Cachectic Cardiovascular: Yes: Regular Rate and Rhythm, S1, S2 Respiratory: Yes: CTA Bilaterally Gastrointestinal: Yes: Normal Bowel Sounds, Soft. No: Tenderness Edema: No Labs: CBC, BMP 07/11/18 06:40 07/11/18 06:40 INR, PTT INR 1.15 (0.83-1.09) H 07/04/18 18:34 Assessment/Plan Probable aspiration pneumonia PUD RA off immunosuppressive tx Continue Unasyn May substitute Augmentin 875 mg po bid x 7d
[2018-07-11] MEDS: LACTATED RINGERS SOLUTION 1,000 ML IV SCH (16:55)
--- NOTE | 2018-07-11 17:23 | PN ---
Progress Note (short form) - Note Progress Note: Bariatric Surgery: Tmax 100.5 VSS Pt doing better Decreased coughing ID note appreciated- Augmentin PO ordered P/E-Abd- soft ,mild LUQ pain on palpation CXR-Resolving LLL pneumonia WBC-2.9 H/H-9.3/28.9 P-MRI to check status of bile, pancreatic duct Advance to bland, soft diet Encourage OOB
--- NOTE | 2018-07-11 17:40 | PATH ---
Surgical Pathology Report Patient Name: MONTANA LINCOLN Med. Rec. #: [id number] /Age/Gender: 1965 (Age: 53) / F Account: [id number] Location: [facility] MED/SURG Taken: 07/08/2018 Received: 07/09/2018 Reported: 07/11/2018 Physicians: Charito Leblanc M.D. Specimen(s) Received ANASTOMOTIC ULCER Clinical History Epigastric pain, gastric bypass surgery Postoperative diagnosis: Anastomotic ulcer Final Diagnosis ANASTOMOTIC ULCER, BIOPSY: SMALL INTESTINAL MUCOSA WITH MILD ACTIVE INFLAMMATION IN THE LAMINA PROPRIA. Electronically Signed Sean Mcgill M.D. Gross Description Received in formalin, labeled "anastomotic ulcer biopsy" is a salmon, irregular portion of soft tissue measuring 0.4 cm. in greatest dimension. The specimen is submitted in toto in one cassette. /07/09/2018 saudi07/09/2018
[2018-07-11] MEDS: AMOX TR/POT CLAV 875MG/125MG TABLETS (FP) PO SCH (18:08)
[2018-07-11 18:11] VITALS: BMI 22.1
--- NOTE | 2018-07-11 18:54 | PN ---
Teaching Attending Note Name of Resident: Uziel White ATTENDING PHYSICIAN STATEMENT I saw and evaluated the patient. I reviewed the resident's note and discussed the case with the resident. I agree with the resident's findings and plan as documented. SUBJECTIVE: OBJECTIVE: ASSESSMENT AND PLAN: SUBJECTIVE: abdominal pain: states that has improved. has RA flair with increaesd morning stiffness and joint swelling OBJECTIVE: Vital Signs Period Temp Pulse Resp BP Sys/Joseph Pulse Ox Last 24 Hr 98.6 F-99.7 F 62-79 18-20 101-121/62-72 97 She is in bed in no distress MMM CVS:S1S2 CTAB Abd:BS+ NT/ND EXT: lEFT ANKLE IS WEOLLEN WITH SWELLING IN THE FOOT AND DISTAL LEG 2+DP pulses B/L Has swelling in the elbow and left hand good mood no focal neurologic deficit Laboratory Results - last 24 hr 07/12/18 07/12/18 06:15 06:15 WBC 3.1 L RBC 3.08 L Hgb 8.8 L Hct 28.1 L MCV 91.2 MCH 28.6 MCHC 31.4 L RDW 19.5 H Plt Count 209 MPV 9.0 Absolute Neuts (auto) 2.1 Neutrophils % 66.0 Lymphocytes % 17.0 Monocytes % 15.1 H Eosinophils % 1.1 Basophils % 0.8 Nucleated RBC % 0 Sodium 140 Potassium 4.0 Chloride 104 Carbon Dioxide 24 Anion Gap 11 BUN 5 L Creatinine 0.5 L Creat Clearance w eGFR > 60 Random Glucose 60 L Calcium 7.8 L Total Bilirubin 0.5 AST 22 ALT 17 Alkaline Phosphatase 53 Total Protein 5.8 L Albumin 2.4 L Active Medications Generic Name Dose Route Start Last Admin Trade Name Adrianq PRN Reason Stop Dose Admin Acetaminophen 650 mg 07/05/18 12:25 07/11/18 16:37 Tylenol Oral Solution - PO 650 mg Q4H PRN Administration FEVER Alprazolam 0.5 mg 07/04/18 18:09 07/10/18 21:21 Xanax - PO 0.5 mg Q8H PRN Administration ANXIETY Amoxicillin/Clavulanate Potassium 1 tab 07/11/18 17:30 07/12/18 08:13 Augmentin - 875mg Tablet PO 1 tab BID@0800,1730 SARAH Administration Atorvastatin Calcium 40 mg 07/04/18 22:00 07/11/18 21:15 Lipitor - PO 40 mg HS SARAH Administration Calcitriol 0.25 mcg 07/05/18 10:00 07/12/18 09:59 Rocaltrol - PO 0.25 mcg DAILY SARAH Administration Docusate Sodium 300 mg 07/10/18 22:00 07/11/18 21:15 Colace - PO 300 mg HS SARAH Administration Escitalopram Oxalate 20 mg 07/05/18 10:00 07/12/18 10:00 Lexapro - PO 20 mg DAILY SARAH Administration Folic Acid 1 mg 07/05/18 10:00 07/12/18 10:00 Folic Acid - PO 1 mg DAILY SARAH Administration Gabapentin 100 mg 07/04/18 22:00 07/12/18 06:00 Neurontin Oral Liquid - PO 100 mg TID SARAH Administration Hydromorphone HCl 0.5 mg 07/04/18 18:12 07/12/18 11:09 Dilaudid Vial - IVPB 0.5 mg Q4H PRN Administration PAIN LEVEL 7 - 10 Lactated Ringer's 1,000 mls @ 75 mls/hr 07/04/18 16:45 07/11/18 16:55 Lactated Ringers Solution IV Not Given ASDIR SARAH Lactobacillus Acidophilus 1 tab 07/12/18 10:00 07/12/18 10:00 Bacid - PO 1 tab DAILY SARAH Administration Metoprolol Tartrate 25 mg 07/05/18 10:00 07/12/18 10:00 Lopressor - PO 25 mg DAILY SARAH Administration Oxycodone HCl 20 mg 07/10/18 12:24 07/12/18 08:13 Roxicodone - PO 20 mg Q4H PRN Administration PAIN LEVEL 4 - 6 Pantoprazole Sodium 20 mg 07/09/18 10:00 07/12/18 10:00 Protonix - PO 20 mg DAILY SARAH Administration Polyethylene Glycol 17 gm 07/10/18 22:00 07/12/18 10:00 Miralax (For Daily Use) - PO Not Given BID SARAH Sucralfate 1 gm 07/08/18 22:00 07/12/18 10:00 Carafate Oral Suspension - PO 1 gm BID SARAH Administration Zolpidem Tartrate 10 mg 07/04/18 18:08 07/11/18 21:15 Ambien - PO 10 mg HS PRN Administration INSOMNIA ASSESSMENT/PLAN: A 53 Y/O F +W RA, abdominal pain Abdominal pain: has ulcer with no active bleeding on EGD, is on PPI and sucralfate at this time, is being followe d by GI/ surgery: is to get MRCP today. increaed the dose to PPI BID RA: she is of her home medication at this time with concern for infectious process in the lungs. Will give a trial of po prednison 10 mg for 3 days Will restart her on her home medication on Saturday after completion of antibiotics She is getting pain control Anemia: She denies any further episode of bleeding, her H/H and VS are stable at this time, States that she gets Iron infusions, will give her another infusion while here. will follow up Iron studies and retic count. Pulmonary: there was concern for aspirATION pna: Unlikely but will C/W ABX at this time. DIet: will ask for nutrition consult pain management: will c/w current regimen HX of CAD: on metoprolol,on statin, aspirin on hold for GI bleeding HX of severe bleeding in the past, will ask GI bout the restarting aspirin on Saturday Leg swelling: it was negative for DVT: likely in the setting of RA flair, willC/ W current management DVT ppx: HEPARIN sQ no contraindication at this time Dispo: home pending further evaluation FC
[2018-07-11] MEDS: DOCUSATE SODIUM 100 MG CAPSULE (FP) PO SCH (21:15)
[2018-07-11] MEDS: ZOLPIDEM TARTRATE 5 MG TABLET PO PRN (21:15)
[2018-07-11] MEDS: ATORVASTATIN CA 40 MG TABLET (FP) PO SCH (21:15)
[2018-07-12] MEDS: HYDROmorphone HCl 2 MG/ML VIAL IVPB PRN ×3 (00:35→18:21)
[2018-07-12] MEDS: oxyCODONE HCL 5 MG TABLET PO PRN ×4 (03:39→21:38)
[2018-07-12] MEDS: GABAPENTIN 250 MG/5 ML ORAL SOLUTION, 470 ML BOTTLE PO SCH ×3 (06:00→21:37)
--- NOTE | 2018-07-12 08:05 | PN ---
Progress Note, Physician Chief Complaint: still with abdominal pain - somewhat better - Current Medication List Current Medications: Active Medications Acetaminophen (Tylenol Oral Solution -) 650 mg PO Q4H PRN PRN Reason: FEVER Last Admin: 07/11/18 16:37 Dose: 650 mg Alprazolam (Xanax -) 0.5 mg PO Q8H PRN PRN Reason: ANXIETY Last Admin: 07/10/18 21:21 Dose: 0.5 mg Amoxicillin/Clavulanate Potassium (Augmentin - 875mg Tablet) 1 tab PO BID@0800, 1730 [facility] Last Admin: 07/11/18 18:08 Dose: 1 tab Atorvastatin Calcium (Lipitor -) 40 mg PO HS [facility] Last Admin: 07/11/18 21:15 Dose: 40 mg Calcitriol (Rocaltrol -) 0.25 mcg PO DAILY [facility] Last Admin: 07/11/18 11:19 Dose: 0.25 mcg Docusate Sodium (Colace -) 300 mg PO [facility] Last Admin: 07/11/18 21:15 Dose: 300 mg Escitalopram Oxalate (Lexapro -) 20 mg PO DAILY [facility] Last Admin: 07/11/18 11:19 Dose: 20 mg Folic Acid (Folic Acid -) 1 mg PO DAILY [facility] Last Admin: 07/11/18 11:19 Dose: 1 mg Gabapentin (Neurontin Oral Liquid -) 100 mg PO TID [facility] Last Admin: 07/12/18 06:00 Dose: 100 mg Hydromorphone HCl (Dilaudid Vial -) 0.5 mg IVPB Q4H PRN PRN Reason: PAIN LEVEL 7 - 10 Last Admin: 07/12/18 00:35 Dose: 0.5 mg Lactated Ringer's (Lactated Ringers Solution) 1,000 mls @ 75 mls/hr IV ASDIR [facility] Last Admin: 07/11/18 16:55 Dose: Not Given Lactobacillus Acidophilus (Bacid -) 1 tab PO DAILY [facility] Metoprolol Tartrate (Lopressor -) 25 mg PO DAILY [facility] Last Admin: 07/11/18 11:19 Dose: 25 mg Oxycodone HCl (Roxicodone -) 20 mg PO Q4H PRN PRN Reason: PAIN LEVEL 4 - 6 Last Admin: 07/12/18 03:39 Dose: 20 mg Pantoprazole Sodium (Protonix -) 20 mg PO DAILY [facility] Last Admin: 07/11/18 11:19 Dose: 20 mg Polyethylene Glycol (Miralax (For Daily Use) -) 17 gm PO BID [facility] Last Admin: 07/11/18 21:16 Dose: 17 grams Sucralfate (Carafate Oral Suspension -) 1 gm PO BID [facility] Last Admin: 07/11/18 21:15 Dose: 1 gm Zolpidem Tartrate (Ambien -) 10 mg PO HS PRN PRN Reason: INSOMNIA Last Admin: 07/11/18 21:15 Dose: 10 mg - Objective Vital Signs: Vital Signs Temperature 99.7 F H 07/12/18 06:00 Pulse Rate 79 07/12/18 06:00 Respiratory Rate 20 07/12/18 06:00 Blood Pressure 121/72 07/12/18 06:00 O2 Sat by Pulse Oximetry (%) 97 07/11/18 21:00 Constitutional: Yes: Well Nourished, No Distress Eyes: Yes: WNL HENT: Yes: WNL Neck: Yes: WNL Cardiovascular: Yes: WNL, Regular Rate and Rhythm Respiratory: Yes: WNL, Regular Gastrointestinal: Yes: WNL, Normal Bowel Sounds, Other (tender to deep palpation mid abdomen no rebound or guarding , nml bs) Labs: CBC, BMP 07/11/18 06:40 07/11/18 06:40 INR, PTT INR 1.15 (0.83-1.09) H 07/04/18 18:34 Problem List - Problems (1) Acute abdominal pain syndrome Assessment/Plan: MRCP reviewed -- amparo dil s/p cholecystectomy , pancreatic divisum, (evaluation of other abnormalities on imaging a as per primary medical team c/w PPI therapy for PUD bariatric surgery f/u Code(s): R10.0 - ACUTE ABDOMEN (2) Gastric ulcer Code(s): K25.9 - GASTRIC ULCER, UNSP ACUTE OR CHRONIC, W/O HEMOR OR PERF Qualifiers: Gastric ulcer chronicity: acute
[2018-07-12] MEDS: AMOX TR/POT CLAV 875MG/125MG TABLETS (FP) PO SCH ×2 (08:13→18:21)
[2018-07-12 08:17] LABS: BASO % 0.8 % (0-2.0); EOS % 1.1 % (0-4.5); HEMATOCRIT 28.1 % (32.4-45.2); HEMOGLOBIN 8.8 GM/dL (10.7-15.3); MCH 28.6 pg (25.7-33.7); MCHC 31.4 g/dl (32.0-36.0); MEAN CELL VOLUME 91.2 fl (80-96); MONO % 15.1 % (3.8-10.2); PLATELET COUNT 209 K/MM3 (134-434); RBC 3.08 M/mm3 (3.60-5.2); RDW 19.5 % (11.6-15.6); WHITE BLOOD COUNT 3.1 K/mm3 (4.0-10.0)
[2018-07-12 09:14] LABS: ALBUMIN 2.4 g/dl (3.4-5.0); ALK PHOS 53 U/L (45-117); ANION GAP 11 MMOL/L (8-16); BILIRUBIN,TOTAL 0.5 mg/dL (0.2-1); BLOOD UREA NITROGEN 5 mg/dL (7-18); CALCIUM 7.8 mg/dL (8.5-10.1); CHLORIDE 104 mmol/L (98-107); CO2 24 mmol/L (21-32); CREATININE 0.5 mg/dL (0.55-1.3); GLUCOSE,RANDOM 60 mg/dL (74-106); SGOT/AST 22 U/L (15-37); SGPT/ALT 17 U/L (13-61); SODIUM 140 mmol/L (136-145); TOT PROT 5.8 g/dl (6.4-8.2)
[2018-07-12] MEDS: CALCITRIOL 0.25 MCG CAPSULE (FP) PO SCH (09:59)
[2018-07-12] MEDS: FOLIC ACID 1 MG TABLET (FP) PO SCH (10:00)
[2018-07-12] MEDS: POLYETHYLENE GLYCOL 3350 119 GM BTL PO SCH ×2 (10:00→21:39)
[2018-07-12] MEDS: PANTOPRAZOLE 20 MG TABLET (FP) PO SCH ×2 (10:00→21:37)
[2018-07-12] MEDS: SUCRALFATE 1 GM/10 ML UNIT DOSE CUPS PO SCH ×2 (10:00→21:36)
[2018-07-12] MEDS: ESCITALOPRAM OXALATE 20 MG TABLET (FP) PO SCH (10:00)
[2018-07-12] MEDS: LACTOBACILLUS ACIDOPHILUS 1 TABLET PO SCH (10:00)
[2018-07-12] MEDS: METOPROLOL TARTRATE 25 MG TABLET (FP) PO SCH (10:00)
--- NOTE | 2018-07-12 12:43 | PN ---
Physical Exam: SUBJECTIVE: abdominal pain: states that has improved. has RA flair with increaesd morning stiffness and joint swelling OBJECTIVE: Vital Signs Period Temp Pulse Resp BP Sys/Joseph Pulse Ox Last 24 Hr 98.6 F-99.7 F 62-79 18-20 101-121/62-72 97 She is in bed in no distress MMM CVS:S1S2 CTAB Abd:BS+ NT/ND EXT: lEFT ANKLE IS WEOLLEN WITH SWELLING IN THE FOOT AND DISTAL LEG 2+DP pulses B/L Has swelling in the elbow and left hand good mood no focal neurologic deficit Laboratory Results - last 24 hr 07/12/18 07/12/18 06:15 06:15 WBC 3.1 L RBC 3.08 L Hgb 8.8 L Hct 28.1 L MCV 91.2 MCH 28.6 MCHC 31.4 L RDW 19.5 H Plt Count 209 MPV 9.0 Absolute Neuts (auto) 2.1 Neutrophils % 66.0 Lymphocytes % 17.0 Monocytes % 15.1 H Eosinophils % 1.1 Basophils % 0.8 Nucleated RBC % 0 Sodium 140 Potassium 4.0 Chloride 104 Carbon Dioxide 24 Anion Gap 11 BUN 5 L Creatinine 0.5 L Creat Clearance w eGFR > 60 Random Glucose 60 L Calcium 7.8 L Total Bilirubin 0.5 AST 22 ALT 17 Alkaline Phosphatase 53 Total Protein 5.8 L Albumin 2.4 L Active Medications Generic Name Dose Route Start Last Admin Trade Name Freq PRN Reason Stop Dose Admin Acetaminophen 650 mg 07/05/18 12:25 07/11/18 16:37 Tylenol Oral Solution - PO 650 mg Q4H PRN Administration FEVER Alprazolam 0.5 mg 07/04/18 18:09 07/10/18 21:21 Xanax - PO 0.5 mg Q8H PRN Administration ANXIETY Amoxicillin/Clavulanate Potassium 1 tab 07/11/18 17:30 07/12/18 08:13 Augmentin - 875mg Tablet PO 1 tab BID@0800,1730 SARAH Administration Atorvastatin Calcium 40 mg 07/04/18 22:00 07/11/18 21:15 Lipitor - PO 40 mg HS SARAH Administration Calcitriol 0.25 mcg 07/05/18 10:00 07/12/18 09:59 Rocaltrol - PO 0.25 mcg DAILY SARAH Administration Docusate Sodium 300 mg 07/10/18 22:00 07/11/18 21:15 Colace - PO 300 mg HS SARAH Administration Escitalopram Oxalate 20 mg 07/05/18 10:00 07/12/18 10:00 Lexapro - PO 20 mg DAILY SARAH Administration Folic Acid 1 mg 07/05/18 10:00 07/12/18 10:00 Folic Acid - PO 1 mg DAILY SARAH Administration Gabapentin 100 mg 07/04/18 22:00 07/12/18 06:00 Neurontin Oral Liquid - PO 100 mg TID SARAH Administration Hydromorphone HCl 0.5 mg 07/04/18 18:12 07/12/18 11:09 Dilaudid Vial - IVPB 0.5 mg Q4H PRN Administration PAIN LEVEL 7 - 10 Lactated Ringer's 1,000 mls @ 75 mls/hr 07/04/18 16:45 07/11/18 16:55 Lactated Ringers Solution IV Not Given ASDIR SARAH Lactobacillus Acidophilus 1 tab 07/12/18 10:00 07/12/18 10:00 Bacid - PO 1 tab DAILY SARAH Administration Metoprolol Tartrate 25 mg 07/05/18 10:00 07/12/18 10:00 Lopressor - PO 25 mg DAILY SARAH Administration Oxycodone HCl 20 mg 07/10/18 12:24 07/12/18 08:13 Roxicodone - PO 20 mg Q4H PRN Administration PAIN LEVEL 4 - 6 Pantoprazole Sodium 20 mg 07/09/18 10:00 07/12/18 10:00 Protonix - PO 20 mg DAILY SARAH Administration Polyethylene Glycol 17 gm 07/10/18 22:00 07/12/18 10:00 Miralax (For Daily Use) - PO Not Given BID SARAH Sucralfate 1 gm 07/08/18 22:00 07/12/18 10:00 Carafate Oral Suspension - PO 1 gm BID SARAH Administration Zolpidem Tartrate 10 mg 07/04/18 18:08 07/11/18 21:15 Ambien - PO 10 mg HS PRN Administration INSOMNIA ASSESSMENT/PLAN: A 53 Y/O F +W RA, Abdominal pain: has ulcer with no active bleeding on EGD, is on PPI and sucralfate at this time, is being followe d by GI/ surgery: is to get MRCP today. increaed the dose to PPI BID RA: she is of her home medication at this time with concern for infectious process in the lungs. Will give a trial of po prednison 10 mg for 3 days Will restart her on her home medication on Saturday after completion of antibiotics She is getting pain control Anemia: She denies any further episode of bleeding, her H/H and VS are stable at this time, States that she gets Iron infusions, will give her another infusion while here. will follow up Iron studies and retic count. Pulmonary: there was concern for aspirATION pna: Unlikely but will C/W ABX at this time. DIet: will ask for nutrition consult pain management: will c/w current regimen HX of CAD: on metoprolol,on statin, aspirin on hold for GI bleeding HX of severe bleeding in the past, will ask GI bout the restarting aspirin on Saturday Leg swelling: it was negative for DVT: likely in the setting of RA flair, willC/ W current management DVT ppx: HEPARIN sQ no contraindication at this time Dispo: home pending further evaluation FC Visit type - Emergency Visit Emergency Visit: Yes ED Registration Date: 07/04/18 Care time: The patient presented to the Emergency Department on the above date and was hospitalized for further evaluation of their emergent condition. - New Patient This patient is new to me today: No - Critical Care Critical Care patient: No - Discharge Referral Referred to [facility] Med P.C.: No
[2018-07-12] MEDS ORDERED: IRON SUCROSE INJECTION 300 MG in SODIUM CHLORIDE 235 ML IVPB ONE (12:45)
[2018-07-12] MEDS ORDERED: PT OWN MED DRAWER 7, Y5N ONE ×2 (13:00→14:01)
[2018-07-12] MEDS: predniSONE 20 MG TABLET (UD) PO SCH (13:43)
--- NOTE | 2018-07-12 15:23 | PN ---
Progress Note (short form) - Note Progress Note: Bariatric Surgery Afebrile today VSS Pt with no c/o abdominal pain States increased RA pain of hands, shoulders Tolerating soft , bland diet well No N/V P/E-Abd- soft, non-tender on palpation WBC-3.1 H/H-8.8/28.1 (slight decrease) Rec- Pt started on Prednisone today for 3 days- this could worsen Anastomotic ulcer causing more pain and/or bleeding. Will need to moniter closely Continue Protonix Continue soft, bland diet For MRI with contrast later today
[2018-07-12] MEDS: LACTATED RINGERS SOLUTION 1,000 ML IV SCH (17:25)
[2018-07-12] MEDS: ACETAMINOPHEN 650 MG/20.3 ML ORAL SOLUTION (CUPS) PO PRN (21:37)
[2018-07-12] MEDS: DOCUSATE SODIUM 100 MG CAPSULE (FP) PO SCH (21:37)
[2018-07-12] MEDS: ATORVASTATIN CA 40 MG TABLET (FP) PO SCH (21:37)
[2018-07-12] MEDS: ZOLPIDEM TARTRATE 5 MG TABLET PO PRN (21:38)
[2018-07-13] MEDS: HYDROmorphone HCl 2 MG/ML VIAL IVPB PRN ×2 (04:32→10:50)
[2018-07-13] MEDS: LACTATED RINGERS SOLUTION 1,000 ML IV SCH ×2 (04:34→18:21)
[2018-07-13] MEDS: GABAPENTIN 250 MG/5 ML ORAL SOLUTION, 470 ML BOTTLE PO SCH ×3 (06:19→21:22)
[2018-07-13] MEDS: ACETAMINOPHEN 650 MG/20.3 ML ORAL SOLUTION (CUPS) PO PRN ×3 (06:22→19:19)
[2018-07-13] MEDS: oxyCODONE HCL 5 MG TABLET PO PRN ×3 (06:23→19:19)
[2018-07-13] MEDS: AMOX TR/POT CLAV 875MG/125MG TABLETS (FP) PO SCH ×2 (10:04→17:37)
[2018-07-13] MEDS: CALCITRIOL 0.25 MCG CAPSULE (FP) PO SCH (10:04)
[2018-07-13] MEDS: LACTOBACILLUS ACIDOPHILUS 1 TABLET PO SCH (10:04)
[2018-07-13] MEDS: predniSONE 20 MG TABLET (UD) PO SCH (10:04)
[2018-07-13] MEDS: SUCRALFATE 1 GM/10 ML UNIT DOSE CUPS PO SCH ×2 (10:04→21:22)
[2018-07-13] MEDS: METOPROLOL TARTRATE 25 MG TABLET (FP) PO SCH (10:04)
[2018-07-13] MEDS: FOLIC ACID 1 MG TABLET (FP) PO SCH (10:04)
[2018-07-13] MEDS: ESCITALOPRAM OXALATE 20 MG TABLET (FP) PO SCH (10:04)
[2018-07-13] MEDS: PANTOPRAZOLE 20 MG TABLET (FP) PO SCH (10:04)
[2018-07-13] MEDS: POLYETHYLENE GLYCOL 3350 119 GM BTL PO SCH ×2 (10:06→21:22)
[2018-07-13] MEDS: ALPRAZolam 0.25 MG TABLET PO PRN (10:08)
--- NOTE | 2018-07-13 10:31 | PN ---
Physical Exam: SUBJECTIVE: She is in no distress at this time the joint pain and swelling has resolved, She states that she tolerated the diet in the evening but this morning had catchup and has some epigastria discomfort. No bleeding int he stoo , no N/V. OBJECTIVE: She is in bed with no distress, CVS:S1S2 CTAB Abd:bs+ , mild epigastric tenderness with no peritonela signs. Joints: no more erythema and swelling in the joints( L Wrist/ L ankle) at this time Vital Signs Period Temp Pulse Resp BP Sys/Joseph Pulse Ox Last 24 Hr 98 F-99.3 F 60-80 18-18 106-130/61-66 98 CBCD WBC 3.1 K/mm3 (4.0-10.0) L 07/12/18 06:15 RBC 3.08 M/mm3 (3.60-5.2) L 07/12/18 06:15 Hgb 8.8 GM/dL (10.7-15.3) L 07/12/18 06:15 Hct 28.1 % (32.4-45.2) L 07/12/18 06:15 MCV 91.2 fl (80-96) 07/12/18 06:15 MCHC 31.4 g/dl (32.0-36.0) L 07/12/18 06:15 RDW 19.5 % (11.6-15.6) H 07/12/18 06:15 Plt Count 209 K/MM3 (134-434) 07/12/18 06:15 MPV 9.0 fl (7.5-11.1) 07/12/18 06:15 CMP Sodium 140 mmol/L (136-145) 07/12/18 06:15 Potassium 4.0 mmol/L (3.5-5.1) 07/12/18 06:15 Chloride 104 mmol/L (98-107) 07/12/18 06:15 Carbon Dioxide 24 mmol/L (21-32) 07/12/18 06:15 Anion Gap 11 MMOL/L (8-16) 07/12/18 06:15 BUN 5 mg/dL (7-18) L 07/12/18 06:15 Creatinine 0.5 mg/dL (0.55-1.3) L 07/12/18 06:15 Creat Clearance w eGFR > 60 (>60) 07/12/18 06:15 Calcium 7.8 mg/dL (8.5-10.1) L 07/12/18 06:15 Total Bilirubin 0.5 mg/dL (0.2-1) 07/12/18 06:15 AST 22 U/L (15-37) 07/12/18 06:15 ALT 17 U/L (13-61) 07/12/18 06:15 Alkaline Phosphatase 53 U/L (45-117) 07/12/18 06:15 Total Protein 5.8 g/dl (6.4-8.2) L 07/12/18 06:15 Albumin 2.4 g/dl (3.4-5.0) L 07/12/18 06:15 Active Medications Generic Name Dose Route Start Last Admin Trade Name Freq PRN Reason Stop Dose Admin Acetaminophen 650 mg 07/05/18 12:25 07/13/18 06:22 Tylenol Oral Solution - PO 650 mg Q4H PRN Administration FEVER Alprazolam 0.5 mg 07/04/18 18:09 07/13/18 10:08 Xanax - PO 0.5 mg Q8H PRN Administration ANXIETY Amoxicillin/Clavulanate Potassium 1 tab 07/11/18 17:30 07/13/18 10:04 Augmentin - 875mg Tablet PO 1 tab BID@0800,1730 SARAH Administration Atorvastatin Calcium 40 mg 07/04/18 22:00 07/12/18 21:37 Lipitor - PO 40 mg HS SARAH Administration Calcitriol 0.25 mcg 07/05/18 10:00 07/13/18 10:04 Rocaltrol - PO 0.25 mcg DAILY SARAH Administration Docusate Sodium 300 mg 07/10/18 22:00 07/12/18 21:37 Colace - PO Not Given HS SARAH Escitalopram Oxalate 20 mg 07/05/18 10:00 07/13/18 10:04 Lexapro - PO 20 mg DAILY SARAH Administration Folic Acid 1 mg 07/05/18 10:00 07/13/18 10:04 Folic Acid - PO 1 mg DAILY SARAH Administration Gabapentin 100 mg 07/04/18 22:00 07/13/18 06:19 Neurontin Oral Liquid - PO 100 mg TID SARAH Administration Hydromorphone HCl 0.5 mg 07/04/18 18:12 07/13/18 04:32 Dilaudid Vial - IVPB 0.5 mg Q4H PRN Administration PAIN LEVEL 7 - 10 Lactated Ringer's 1,000 mls @ 75 mls/hr 07/04/18 16:45 07/13/18 04:34 Lactated Ringers Solution IV 75 mls/hr ASDIR SARAH Administration Lactobacillus Acidophilus 1 tab 07/12/18 10:00 07/13/18 10:04 Bacid - PO 1 tab DAILY SARAH Administration Metoprolol Tartrate 25 mg 07/05/18 10:00 07/13/18 10:04 Lopressor - PO 25 mg DAILY SARAH Administration Oxycodone HCl 20 mg 07/10/18 12:24 07/13/18 06:23 Roxicodone - PO 20 mg Q4H PRN Administration PAIN LEVEL 4 - 6 Pantoprazole Sodium 20 mg 07/12/18 22:00 07/13/18 10:04 Protonix - PO 20 mg BID SARAH Administration Polyethylene Glycol 17 gm 07/10/18 22:00 07/13/18 10:06 Miralax (For Daily Use) - PO Not Given BID SARAH Sucralfate 1 gm 07/08/18 22:00 07/13/18 10:04 Carafate Oral Suspension - PO 1 gm BID SARAH Administration Zolpidem Tartrate 10 mg 07/04/18 18:08 07/12/18 21:38 Ambien - PO 10 mg HS PRN Administration INSOMNIA ASSESSMENT/PLAN: A 53 Y/O F +W RA, HX of gastric bypass and CAD, Chronic dyspepsia sent for evaluation by her Surgeon. Abdominal pain: has ulcer with no active bleeding on EGD, is on PPI and sucralfate at this time, is being followed by GI/ surgery: had MRCP done and pre report no new changes from the previous one. will Follow with her surgeon for need fro any further intervention RA: she is of her home medication at this time with concern for infectious process in the lungs. receievd 1 dose of prednisone for joint pain which has resolved today, will DC the prednisone. Will restart her on her home medication on Saturday after completion of antibiotics She is getting pain control regards the use of MTX the effect is long acting and no clear benefit from with holding them for infection or surgical intervention. Anemia: She denies any further episode of bleeding, her H/H and VS are stable at this time, States that she gets Iron infusions, will give her another infusion while here. will follow up Iron studies and retic count. Pulmonary: there was concern for aspiration PNA and was evaluated by ID is on day 5 of antibiotics( unasyn>augmentin) of total of 7 course:She has RA which can be the etiology for her abnormal Xray findings, she has no pulmonary complaints at this time. Diet: will ask for nutrition consult Pain management: will c/w current regimen CAD: on metoprolol,on statin, aspirin on hold for GI bleeding HX of severe bleeding in the past, will ask GI on DC planing about the restarting aspirin on Saturday No labs for today. VS stable. Leg swelling: it was negative for DVT: likely in the setting of RA flair, will C /W current management DVT ppx: HEPARIN sQ no contraindication at this time Dispo: home pending surgical recs, If no more intervention needed can be DCed back to home with plan for follow up with GI. Visit type - Emergency Visit Emergency Visit: Yes ED Registration Date: 07/04/18 Care time: The patient presented to the Emergency Department on the above date and was hospitalized for further evaluation of their emergent condition. - New Patient This patient is new to me today: No - Critical Care Critical Care patient: No - Discharge Referral Referred to [facility] Med P.C.: No
--- NOTE | 2018-07-13 11:29 | PN ---
Progress Note, Physician Chief Complaint: denies abdominal pain today ; tolerated diet - Current Medication List Current Medications: Active Medications Acetaminophen (Tylenol Oral Solution -) 650 mg PO Q4H PRN PRN Reason: FEVER Last Admin: 07/13/18 06:22 Dose: 650 mg Alprazolam (Xanax -) 0.5 mg PO Q8H PRN PRN Reason: ANXIETY Last Admin: 07/13/18 10:08 Dose: 0.5 mg Amoxicillin/Clavulanate Potassium (Augmentin - 875mg Tablet) 1 tab PO BID@0800, 1730 [facility] Last Admin: 07/13/18 10:04 Dose: 1 tab Atorvastatin Calcium (Lipitor -) 40 mg PO [facility] Last Admin: 07/12/18 21:37 Dose: 40 mg Calcitriol (Rocaltrol -) 0.25 mcg PO DAILY [facility] Last Admin: 07/13/18 10:04 Dose: 0.25 mcg Docusate Sodium (Colace -) 300 mg PO [facility] Last Admin: 07/12/18 21:37 Dose: Not Given Escitalopram Oxalate (Lexapro -) 20 mg PO DAILY [facility] Last Admin: 07/13/18 10:04 Dose: 20 mg Folic Acid (Folic Acid -) 1 mg PO DAILY [facility] Last Admin: 07/13/18 10:04 Dose: 1 mg Gabapentin (Neurontin Oral Liquid -) 100 mg PO TID [facility] Last Admin: 07/13/18 06:19 Dose: 100 mg Hydromorphone HCl (Dilaudid Vial -) 0.5 mg IVPB Q4H PRN PRN Reason: PAIN LEVEL 7 - 10 Last Admin: 07/13/18 10:50 Dose: 0.5 mg Lactated Ringer's (Lactated Ringers Solution) 1,000 mls @ 75 mls/hr IV ASDIR [facility] Last Admin: 07/13/18 04:34 Dose: 75 mls/hr Lactobacillus Acidophilus (Bacid -) 1 tab PO DAILY [facility] Last Admin: 07/13/18 10:04 Dose: 1 tab Metoprolol Tartrate (Lopressor -) 25 mg PO DAILY [facility] Last Admin: 07/13/18 10:04 Dose: 25 mg Oxycodone HCl (Roxicodone -) 20 mg PO Q4H PRN PRN Reason: PAIN LEVEL 4 - 6 Last Admin: 07/13/18 06:23 Dose: 20 mg Pantoprazole Sodium (Protonix -) 40 mg PO DAILY [facility] Pantoprazole Sodium (Protonix -) 20 mg PO ONCE ONE Stop: 07/13/18 17:46 Polyethylene Glycol (Miralax (For Daily Use) -) 17 gm PO BID [facility] Last Admin: 07/13/18 10:06 Dose: Not Given Sucralfate (Carafate Oral Suspension -) 1 gm PO BID [facility] Last Admin: 07/13/18 10:04 Dose: 1 gm Zolpidem Tartrate (Ambien -) 10 mg PO HS PRN PRN Reason: INSOMNIA Last Admin: 07/12/18 21:38 Dose: 10 mg - Objective Vital Signs: Vital Signs Temperature 98 F 07/13/18 06:33 Pulse Rate 60 07/13/18 06:33 Respiratory Rate 18 07/13/18 06:33 Blood Pressure 130/64 07/13/18 06:33 O2 Sat by Pulse Oximetry (%) 98 07/12/18 21:00 Constitutional: Yes: Well Nourished, No Distress, Calm Eyes: Yes: WNL HENT: Yes: WNL Neck: Yes: WNL Cardiovascular: Yes: WNL, Regular Rate and Rhythm Respiratory: Yes: WNL, Regular, CTA Bilaterally Gastrointestinal: Yes: WNL, Normal Bowel Sounds, Soft Extremities: Yes: WNL Edema: No Labs: CBC, BMP 07/12/18 06:15 07/12/18 06:15 INR, PTT INR 1.15 (0.83-1.09) H 07/04/18 18:34 Problem List - Problems (1) Acute abdominal pain syndrome Assessment/Plan: MRCP reviewed -- amparo dil s/p cholecystectomy , pancreatic divisum, (evaluation of other abnormalities on imaging a as per primary medical team c/w PPI therapy for PUD bariatric surgery f/u diet as tolerated Code(s): R10.0 - ACUTE ABDOMEN (2) Gastric ulcer Code(s): K25.9 - GASTRIC ULCER, UNSP ACUTE OR CHRONIC, W/O HEMOR OR PERF Qualifiers: Gastric ulcer chronicity: acute
[2018-07-13] MEDS ORDERED: PT OWN MED DRAWER 7, Y5N ONE (14:14)
[2018-07-13] MEDS ORDERED: PANTOPRAZOLE 20 MG TABLET (FP) PO ONE (17:45)
[2018-07-13] MEDS: ATORVASTATIN CA 40 MG TABLET (FP) PO SCH (21:22)
[2018-07-13] MEDS: ZOLPIDEM TARTRATE 5 MG TABLET PO PRN (21:22)
[2018-07-13] MEDS: DOCUSATE SODIUM 100 MG CAPSULE (FP) PO SCH (21:22)
[2018-07-14] MEDS: HYDROmorphone HCl 2 MG/ML VIAL IVPB PRN ×2 (04:32→13:13)
[2018-07-14] MEDS: LACTATED RINGERS SOLUTION 1,000 ML IV SCH ×2 (04:34→17:13)
[2018-07-14] MEDS: GABAPENTIN 250 MG/5 ML ORAL SOLUTION, 470 ML BOTTLE PO SCH ×2 (06:24→13:59)
[2018-07-14] MEDS: AMOX TR/POT CLAV 875MG/125MG TABLETS (FP) PO SCH ×2 (08:23→16:44)
[2018-07-14] MEDS: oxyCODONE HCL 5 MG TABLET PO PRN ×2 (08:25→16:09)
[2018-07-14] MEDS: SUCRALFATE 1 GM/10 ML UNIT DOSE CUPS PO SCH (09:20)
[2018-07-14] MEDS: CALCITRIOL 0.25 MCG CAPSULE (FP) PO SCH (09:20)
[2018-07-14] MEDS: METOPROLOL TARTRATE 25 MG TABLET (FP) PO SCH (09:20)
[2018-07-14] MEDS: ESCITALOPRAM OXALATE 20 MG TABLET (FP) PO SCH (09:20)
[2018-07-14] MEDS: FOLIC ACID 1 MG TABLET (FP) PO SCH (09:20)
[2018-07-14] MEDS: POLYETHYLENE GLYCOL 3350 119 GM BTL PO SCH (09:20)
[2018-07-14] MEDS: LACTOBACILLUS ACIDOPHILUS 1 TABLET PO SCH (09:20)
[2018-07-14] MEDS ORDERED: PANTOPRAZOLE 40 MG TABLET (FP) PO SCH (10:00)
--- NOTE | 2018-07-14 10:19 | PN ---
Progress Note, Physician Chief Complaint: abd pain History of Present Illness: arthritis pains hurting her a lot, prednisone started abd pain mild, not fully resolved no cp, sob - Current Medication List Current Medications: Active Medications Acetaminophen (Tylenol Oral Solution -) 650 mg PO Q4H PRN PRN Reason: FEVER Last Admin: 07/13/18 19:19 Dose: 650 mg Alprazolam (Xanax -) 0.5 mg PO Q8H PRN PRN Reason: ANXIETY Last Admin: 07/13/18 10:08 Dose: 0.5 mg Amoxicillin/Clavulanate Potassium (Augmentin - 875mg Tablet) 1 tab PO BID@0800, 1730 [facility] Last Admin: 07/14/18 08:23 Dose: 1 tab Atorvastatin Calcium (Lipitor -) 40 mg PO HS [facility] Last Admin: 07/13/18 21:22 Dose: 40 mg Calcitriol (Rocaltrol -) 0.25 mcg PO DAILY [facility] Last Admin: 07/14/18 09:20 Dose: 0.25 mcg Docusate Sodium (Colace -) 300 mg PO HS [facility] Last Admin: 07/13/18 21:22 Dose: 300 mg Escitalopram Oxalate (Lexapro -) 20 mg PO DAILY [facility] Last Admin: 07/14/18 09:20 Dose: 20 mg Folic Acid (Folic Acid -) 1 mg PO DAILY [facility] Last Admin: 07/14/18 09:20 Dose: 1 mg Gabapentin (Neurontin Oral Liquid -) 100 mg PO TID [facility] Last Admin: 07/14/18 06:24 Dose: 100 mg Hydromorphone HCl (Dilaudid Vial -) 0.5 mg IVPB Q4H PRN PRN Reason: PAIN LEVEL 7 - 10 Last Admin: 07/14/18 04:32 Dose: 0.5 mg Lactated Ringer's (Lactated Ringers Solution) 1,000 mls @ 75 mls/hr IV ASDIR [facility]PLAC[facility] Last Admin: 07/14/18 04:34 Dose: 75 mls/hr Lactobacillus Acidophilus (Bacid -) 1 tab PO DAILY [facility] Last Admin: 07/14/18 09:20 Dose: 1 tab Metoprolol Tartrate (Lopressor -) 25 mg PO DAILY [facility] Last Admin: 07/14/18 09:20 Dose: 25 mg Oxycodone HCl (Roxicodone -) 20 mg PO Q4H PRN PRN Reason: PAIN LEVEL 4 - 6 Last Admin: 07/14/18 08:25 Dose: 20 mg Pantoprazole Sodium (Protonix -) 40 mg PO DAILY [facility] Last Admin: 07/14/18 09:20 Dose: 40 mg Polyethylene Glycol (Miralax (For Daily Use) -) 17 gm PO BID [facility] Last Admin: 07/14/18 09:20 Dose: Not Given Sucralfate (Carafate Oral Suspension -) 1 gm PO BID [facility] Last Admin: 07/14/18 09:20 Dose: 1 gm Zolpidem Tartrate (Ambien -) 10 mg PO HS PRN PRN Reason: INSOMNIA Last Admin: 07/13/18 21:22 Dose: 10 mg - Objective Vital Signs: Vital Signs Temperature 98.3 F 07/14/18 05:00 Pulse Rate 65 07/14/18 05:00 Respiratory Rate 18 07/14/18 05:00 Blood Pressure 114/73 07/14/18 05:00 O2 Sat by Pulse Oximetry (%) 98 07/13/18 21:00 Constitutional: Yes: Well Nourished, No Distress, Calm Cardiovascular: Yes: Regular Rate and Rhythm, S1, S2. No: JVD, Gallop, Murmur Respiratory: Yes: Regular, CTA Bilaterally. No: Accessory Muscle Use, Rales, Wheezes Extremities: No: Cold Edema: No Neurological: Yes: Alert, Oriented Psychiatric: No: Agitated Labs: CBC, BMP 07/12/18 06:15 07/12/18 06:15 INR, PTT INR 1.15 (0.83-1.09) H 07/04/18 18:34 Assessment/Plan EC07/05/2018 at 09:52 NSR at 73/min with T-wave inversions in leads V4-V6 and II, II and AvF ECG 09/19/17 sinus, old inf infarct, TWI II, III, aVF, V4-V6, PVC mibi 05/2017 large scar involving inferior and inferolateral barbour. inf and inferolat barbour are akinetic and EF 43%, no ischemia a/p: Preoperative clearance, UGI bleeding, lucy-anastomosis ulcer - reviewed records from [facility], no ischemic on recent stress test, EKG stable compared to prior - stable from cardiac perspective, no s/sx of active ischemia or chf. 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
[2018-07-14] MEDS: ACETAMINOPHEN 650 MG/20.3 ML ORAL SOLUTION (CUPS) PO PRN (11:15)
[2018-07-14 11:53] VITALS: BP 131/74; PULSE 73; TEMP 8.2
[2018-07-14] MEDS ORDERED: PT OWN MED DRAWER 7, Y5N ONE ×3 (13:09→14:03)
--- NOTE | 2018-07-14 14:15 | PN ---
Progress Note (short form) - Note Progress Note: Bariatric Surgery Afebrile; VSS Pt stable, appears improved Eating regular food States had mild epigastric burning with tomatoe sauce (I explained likely due to tomato acidity and should try to avoid) P/E- Abd- non-distended, soft non-tender upon palpation Ext- no swelling or edema MRI- no abnormalities detected P- Discussed in detail with patient. Anastomotic ulcer now stabilized, no justification for surgery. Advised pt to avoid ulcer causing factors and allow ulcer to heal. This includes avoiding acidic foods, alcohol, smoking, chocolate, coffee, etc Pt should also avoid ulcer-causing meds like NSAID's, Steroids (understand difficult with RA but limit), immunosuppressive drugs, aspirin F/U in office in 2 weeks
--- NOTE | 2018-07-14 15:20 | PN ---
Teaching Attending Note Name of Resident: Uziel White ATTENDING PHYSICIAN STATEMENT I saw and evaluated the patient. I reviewed the resident's note and discussed the case with the resident. I agree with the resident's findings and plan as documented. SUBJECTIVE:Patient feels improved no new complaints remained stable, no c/o abd pain OBJECTIVE: Vital Signs Period Temp Pulse Resp BP Sys/Joseph Pulse Ox Last 24 Hr 8.2 F-98.3 F 61-73 18-20 114-133/70-74 98-98 Middle aged f not in distress HEENT: Mm moist mild anemia NECK: No JVd No Bruit CHEST: CTA B/L CVS: s1S2 R ABD: Mild epigastric tenderness EXT: No domi afeet; [employer]ER: AOX3 non focal MEDS: Active Medications Active Medications Acetaminophen (Tylenol Oral Solution -) 650 mg PO Q4H PRN PRN Reason: FEVER Last Admin: 07/14/18 11:15 Dose: 650 mg Alprazolam (Xanax -) 0.5 mg PO Q8H PRN PRN Reason: ANXIETY Last Admin: 07/13/18 10:08 Dose: 0.5 mg Amoxicillin/Clavulanate Potassium (Augmentin - 875mg Tablet) 1 tab PO BID@0800, 1730 [facility] Last Admin: 07/14/18 08:23 Dose: 1 tab Atorvastatin Calcium (Lipitor -) 40 mg PO HS [facility] Last Admin: 07/13/18 21:22 Dose: 40 mg Calcitriol (Rocaltrol -) 0.25 mcg PO DAILY [facility] Last Admin: 07/14/18 09:20 Dose: 0.25 mcg Docusate Sodium (Colace -) 300 mg PO HS [facility] Last Admin: 07/13/18 21:22 Dose: 300 mg Escitalopram Oxalate (Lexapro -) 20 mg PO DAILY [facility] Last Admin: 07/14/18 09:20 Dose: 20 mg Folic Acid (Folic Acid -) 1 mg PO DAILY [facility] Last Admin: 07/14/18 09:20 Dose: 1 mg Gabapentin (Neurontin Oral Liquid -) 100 mg PO TID [facility] Last Admin: 07/14/18 13:59 Dose: 100 mg Hydromorphone HCl (Dilaudid Vial -) 0.5 mg IVPB Q4H PRN PRN Reason: PAIN LEVEL 7 - 10 Last Admin: 07/14/18 13:13 Dose: 0.5 mg Lactated Ringer's (Lactated Ringers Solution) 1,000 mls @ 75 mls/hr IV ASDIR [facility] Last Admin: 07/14/18 04:34 Dose: 75 mls/hr Lactobacillus Acidophilus (Bacid -) 1 tab PO DAILY [facility] Last Admin: 07/14/18 09:20 Dose: 1 tab Metoprolol Tartrate (Lopressor -) 25 mg PO DAILY [facility] Last Admin: 07/14/18 09:20 Dose: 25 mg Oxycodone HCl (Roxicodone -) 20 mg PO Q4H PRN PRN Reason: PAIN LEVEL 4 - 6 Last Admin: 07/14/18 08:25 Dose: 20 mg Pantoprazole Sodium (Protonix -) 40 mg PO DAILY [facility] Last Admin: 07/14/18 09:20 Dose: 40 mg Polyethylene Glycol (Miralax (For Daily Use) -) 17 gm PO BID [facility] Last Admin: 07/14/18 09:20 Dose: Not Given Sucralfate (Carafate Oral Suspension -) 1 gm PO BID [facility] Last Admin: 07/14/18 09:20 Dose: 1 gm Zolpidem Tartrate (Ambien -) 10 mg PO HS PRN PRN Reason: INSOMNIA Last Admin: 07/13/18 21:22 Dose: 10 mg LABS: CBC, BMP 07/14/18 14:30 07/14/18 14:30 ASSESSMENT AND PLAN: 53 yrs old F multiple medical Co-morbidities Morbid Obesity s/p By pass surgery, CAD s/p CABG, GI bleeding chronic pain dyslipedemia, present with epigastric pain and GI bleeding evaluated by GI, cardiology and Bariatic surgery diagnosed Bronchitis on PO Augmentin, underwent EGD shows ulcer at anastomotic site patient has H/O TA on Po prednisone as per GI and Bariatic surgery , recommendation NSAID and Steroids are contraindicated so held , will educate patient to avoid NSAID and steroid can discuss with her Rhematologist about alternative therapy, patient is off ASA fotr active ulcer despite H/O CAD,. Patient can be discharged after Rpt labs as per plan.
[2018-07-14 15:44] LABS: HEMATOCRIT 29.4 % (32.4-45.2); HEMOGLOBIN 9.2 GM/dL (10.7-15.3); MCH 28.5 pg (25.7-33.7); MCHC 31.4 g/dl (32.0-36.0); MEAN CELL VOLUME 90.8 fl (80-96); PLATELET COUNT 241 K/MM3 (134-434); RBC 3.23 M/mm3 (3.60-5.2); RDW 19.6 % (11.6-15.6); WHITE BLOOD COUNT 4.6 K/mm3 (4.0-10.0)
[2018-07-14 16:13] LABS: ALBUMIN 2.4 g/dl (3.4-5.0); ALK PHOS 53 U/L (45-117); ANION GAP 8 MMOL/L (8-16); BILIRUBIN,TOTAL 0.2 mg/dL (0.2-1); BLOOD UREA NITROGEN 7 mg/dL (7-18); CALCIUM 7.9 mg/dL (8.5-10.1); CHLORIDE 107 mmol/L (98-107); CO2 26 mmol/L (21-32); CREATININE 0.6 mg/dL (0.55-1.3); GLUCOSE,RANDOM 83 mg/dL (74-106); POTASSIUM 3.7 mmol/L (3.5-5.1); SGOT/AST 16 U/L (15-37); SGPT/ALT 18 U/L (13-61); SODIUM 141 mmol/L (136-145)
--- NOTE | 2018-07-14 17:51 | DS ---
Physical Exam: SUBJECTIVE: Patient seen and examined at bedside. No overnight events. No new complaints. Feels better overall. Denies CP,ETIENNE, SOB, abdominal pain, nausea or vomiting. OBJECTIVE: Vital Signs Period Temp Pulse Resp BP Sys/Joseph Pulse Ox Last 24 Hr 8.2 F-98.3 F 61-73 18-20 114-133/73-74 98-98 PHYSICAL EXAM GENERAL: AAox3, NAD HEENT: Mm moist mild anemia NECK: No JVd No Bruit CHEST: CTA B/L CVS: s1S2 R ABD: Mild epigastric tenderness EXT: No domi afeet; [employer]CHNICIAN: AOX3 non focal LABS Laboratory Results - last 24 hr 07/13/18 07/14/18 07/14/18 07:35 14:30 14:30 WBC 4.6 RBC 3.23 L Hgb 9.2 L Hct 29.4 L MCV 90.8 MCH 28.5 MCHC 31.4 L RDW 19.6 H Plt Count 241 MPV 9.0 Sodium 141 Potassium 3.7 Chloride 107 Carbon Dioxide 26 Anion Gap 8 BUN 7 Creatinine 0.6 Creat Clearance w eGFR > 60 Random Glucose 83 Calcium 7.9 L Iron 62 Total Bilirubin 0.2 AST 16 ALT 18 Alkaline Phosphatase 53 Total Protein 6.0 L Albumin 2.4 L IMAGING: * CT/ENTEROGRAPHY CT HISTORY PROVIDED: Rule out small bowel obstruction. Sequential axial images were obtained from the domes of the diaphragms through the symphysis pubis following the administration of both oral and intravenous contrast material. CT enterography protocol was utilized. Evaluation of the lung bases demonstrates atelectatic changes within the left lower lobe. The patient is S/P gastric bypass procedure. Multiple surgical clips and suture lines are identified within the left upper quadrant. Clinical correlation as to the nature of the procedure is recommended. No gastric masses or outlet obstruction is identified. Small intestinal loops are normal in caliber with no evidence of obstruction. There is no evidence of a intrinsic or extrinsic mass lesions or strictures. No abnormalities of the terminal ileum are identified. Evaluation of the colon demonstrates no evidence of intrinsic or extrinsic mass lesions. Retained fecal material is seen within the left colon. The liver is normal in size and texture in expected masses present. The gallbladder is been removed with a mild to moderate dilatation of the intra and extrahepatic biliary tree. The CBD measures approximately 1.5 cm. There is also prominence of the main pancreatic duct. No obvious obstruction is identified. A follow-up MRCP examination may be warranted, if clinically indicated. The spleen, pancreas , adrenal glands and kidneys demonstrate no significant abnormalities. There is no evidence of intra-abdominal or retroperitoneal lymphadenopathy or fluid collections. Examination of the pelvis demonstrates no evidence of pelvic masses , fluid collections or lymphadenopathy. The uterus has been removed. There is no evidence of acute bony abnormalities. The patient is S/P laminectomy and posterior fusion from L2 to L5. IMPRESSION: 1. S/P gastric bypass procedure with no evidence of bowel obstruction or mass lesions. 2. S/P cholecystectomy with prominent biliary tree as described above. No obvious obstruction suggested. MRCP follow-up recommended. 3. No acute pathology within the abdomen or pelvis. Please see above discussion. Reported By: Jarvis Jimenes MD [id number] * MRI/ABDOMEN MRI W/O CONTRAST /MRCP Indication: Bile duct dilatation. Technique: A multi sequential, multiplanar MRI of the abdomen and magnetic resonance cholangiopancreatogram with MIP reformations performed without contrast. Comparison: 06/24/2018 MRI/MRCP performed at outside facility. Correlation made to 07/09/2018 CT enterography and 04/11/2006 CT abdomen/ pelvis. Findings: Normal liver size with extensive signal dropout on out of phase sequence compatible with steatosis. Status post cholecystectomy with approximately 2.4 cm cystic duct remnant. No fluid collection in the gallbladder fossa. Diffuse dilatation of the common hepatic and common bile duct measuring up to 15 mm in diameter with smooth distal tapering and mild central intrahepatic ductal dilatation is similar to 2017 MRI. No filling defects within the bile ducts to suggest choledocholithiasis. There is pancreatic divisum. The pancreas is otherwise unremarkable. Normal size spleen with homogeneous signal. An approximately 2.0 x 2.3 cm heterogeneous mass inseparable from the right adrenal gland and intrahepatic IVC with compression of the intrahepatic IVC is similar size dating back to 04/11/2006 CT. The kidneys are normal size. No hydronephrosis. No abdominal aortic aneurysm. No evidence of pathologically enlarged lymph nodes within the abdomen. The visualized loops of large bowel and small bowel are normal caliber. No evidence of abdominal ascites. There is cardiomegaly. There is consolidative opacity in the lingula and anterior left lung base. Status post multilevel laminectomies with posterior instrumented fusion in the lumbar spine. Dorsal epidural fluid collection in between the pedicle screws measuring up to 3.0 x 5.5 cm is similar to the prior MRI, likely an postsurgical serosanguineous collection. Impression: 1. Status post cholecystectomy with no fluid collection in the gallbladder fossa. 2. Bile duct dilatation as described above is similar to 01/2018 MRI/MRCP performed at outside facility. No evidence of choledocholithiasis. This ductal dilatation may be physiologic change postcholecystectomy. Please correlate with serum biliary markers. 3. Pancreas divisum. No evidence of acute pancreatitis. If clinically warranted, correlate with pancreatic enzymes. 4. Indeterminant 2.3 cm right adrenal/paracaval mass as described above a similar size dating back to 04/11/2006 CT.Reported By: Paras Deng DO 07/12/18 1505 HOSPITAL COURSE: 53 year old female who was transferred from [facility] to be seen by her original gastric bypass surgery Dr Khoury for evaluation of ulceration at site of anastamosis. While she was she was seen by GI and EGD was repeated confirming a marginal ulcer noted just distal to the gastroenteric anastamosis was seen. Patient was placed on Protonix and Carafate from admission. CT enterography was done to rule out small bowel obstuction and reported above. MRCP was performed bile duct dilatation seen on CT and reported above. She also started on IV Unasyn for suspected aspiration PNA and completed 3 day course. Her RA flared and was seen by Rheum. and started on steroids which will be discontinued on discharge as they may cause worsening of ulcer. She has been instructed to follow up with PMD for further management. She has been instructed to follow up with PMD and GI in one week. Also follow up with bariatrics in two weeks. Instructed to return to ER if any signs of bleeding 0r if she develops fever, chills or intractable abdominal pain. Date of Admission:07/04/18 Date of Discharge: 07/14/18 Minutes to complete discharge: 42 Discharge Summary Reason For Visit: ABD PAIN Current Active Problems Acute abdominal pain syndrome (Acute) Aspiration pneumonia (Acute) CAD (coronary artery disease) (Acute) Constipation (Acute) Depression (Acute) Gastric ulcer (Acute) HTN (hypertension) (Acute) Rheumatoid arthritis (Acute) Condition: Improved - Instructions Diet, Activity, Other Instructions: You have been seen and treated for a peptic ulcer. You may increase your activity as tolerated. You will continue to take the medication Protonix once day by mouth and Carafate twice a day for 30 days. You will need to avoid ulcer causing factors such as acidic foods, alcohol, smoking, chocolate, coffee, etc. You should also avoid ulcer-causing meds like NSAID's, Steroids (understand difficult with RA but limit), immunosuppressive drugs, aspirin. Resume all other medications as previously prescribed. You will follow up with Dr. Khoury in two weeks. Follow up with your Primary doctor in one week to get referrals to [facility]. If you develop severe abdominal pain, bleeding per rectum, vomiting blood or fever/chills please return to ED immediately. Referrals: Anup Khoury MD [Staff Physician] - 2 Weeks Blaine Amrbocio DO [Staff Physician] - 1 Week Disposition: HOME - Home Medications Comprehensive Discharge Medication List: Ambulatory Orders Alprazolam [Xanax] 0.5 mg PO Q8H PRN #15 tablet MDD 3 07/14/18 Amoxicillin/Potassium Clav [Augmentin 875-125 Tablet] 1 each PO BID #8 tablet Atorvastatin Ca [Lipitor] 40 mg PO HS #30 tablet 07/14/18 Escitalopram Oxalate [Lexapro -] 20 mg PO DAILY #7 tablet 07/14/18 Folic Acid 1 mg PO DAILY #30 tablet 07/14/18 Gabapentin Liquid [Neurontin Oral Liquid -] 100 mg PO TID #60 ml 07/14/18 Metoprolol Tartrate [Lopressor -] 25 mg PO DAILY #14 tablet 07/14/18 Pantoprazole Sodium [Protonix -] 40 mg PO DAILY #30 tablet.ec 07/14/18 Sucralfate Oral Suspension [Carafate Oral Suspension -] 1 gm PO BID #30 ml 07/14 Zolpidem Tartrate [Ambien] 10 mg PO HS PRN #10 tablet MDD 1 07/14/18 oxyCODONE HCL [Roxicodone -] 10 mg PO Q6H PRN #40 tablet MDD 4 07/14/18 Problem List - Problems (1) Gastric ulcer (2) Aspiration pneumonia (3) CAD (coronary artery disease) (4) Constipation This patient is new to me today: No Emergency Visit: Yes ED Registration Date: 07/04/18 Care time: The patient presented to the Emergency Department on the above date and was hospitalized for further evaluation of their emergent condition. Critical Care patient: No - Discharge Referral Referred to [facility] No
== END 2018-07-14 18:46 | disposition home or self-care (01) | DRG 383 ==
LOC: J8W 07-04 15:19
PROVIDERS: ADMIT Surgery; ATTEND Internal Medicine
PROC: 0DB68ZX Excision of Stomach, Via Natural or Artificial Opening Endoscopic, Diagnostic (ICD-10-PCS; principal; 2018-07-08 10:00)
DX: K25.9 Gastric ulcer, unspecified as acute or chronic, without hemorrhage or perforation (principal); J69.0 Pneumonitis due to inhalation of food and vomit; I25.10 Atherosclerotic heart disease of native coronary artery without angina pectoris; I10 Essential (primary) hypertension; E78.5 Hyperlipidemia, unspecified; M06.9 Rheumatoid arthritis, unspecified; F32.9 Major depressive disorder, single episode, unspecified; R10.0 Acute abdomen; K21.9 Gastro-esophageal reflux disease without esophagitis; D72.819 Decreased white blood cell count, unspecified; R50.9 Fever, unspecified; D64.9 Anemia, unspecified; K59.00 Constipation, unspecified; Z95.1 Presence of aortocoronary bypass graft; Z96.651 Presence of right artificial knee joint; Z87.891 Personal history of nicotine dependence; Z98.84 Bariatric surgery status
CPT/HCPCS: 36415; 71045-TC-FY; 71046-TC-FY; 74177-TC; 74181-TC; 80048; 80053; 81003; 81015; 83540; 83735; 84100; 85025; 85027; 85610; 85730; 87040; 87086; 88305-TC; 93005; 93010; 93970-TC; 97116-GP; 97161-GP; J1756